=== PATIENT | female | born 1975 | race Caucasian/White ===

== ENCOUNTER 2017-01-24 17:49 | Emergency (ER) | payer BC, OTHER ==
[2017-01-24] MEDS ORDERED: Ondansetron 4 MG/2 ML SDV IVPUSH ONE (18:30)
[2017-01-24] MEDS ORDERED: Sodium Chloride 0.9% 1,000 ML IV SCH ×2 (18:30→20:15)
[2017-01-24] MEDS ORDERED: HYDROmorphone 0.5 MG/0.5 ML Syringe IVPUSH ONE (18:30)
--- NOTE | 2017-01-24 18:34 | EDM.PDOC ---
ED HPI GI/ABDOMINAL - General Chief Complaint: Abdominal Pain Stated Complaint: BLOCKAGE Time Seen by Provider: 01/24/17 18:32 Source: Reports: Patient, Family History Limitations: Reports: No limitations - History of Present Illness INITIAL COMMENTS - FREE TEXT/NARRATIVE: pt is feeling very distended She is having pain tht she is rating at a 8. She hs not vomited.After arrival pt was able to have a bm and she did pass gas/ Timing/Duration: Reports: Hour(s):, Other ( started at 3 pm) - Related Data Allergies/ADRs: Allergies Allergy/AdvReac Type Severity Reaction Status Date / Time doxycycline AdvReac Stomach Verified 01/24/17 18:09 Upset sumatriptan AdvReac Muscle Verified 01/24/17 18:09 Aches Home Meds: Home Meds Cholecalciferol (Vitamin D3) [Vitamin D3] 1,000 unit PO DAILY 12/17/13 [History] Cyanocobalamin (Vitamin B-12) [Vitamin B-12] 1,000 mcg PO DAILY 12/17/13 [ History] Cyclobenzaprine [Flexeril] 10 mg PO DAILY 12/17/13 [History] Multivitamin [Multi-Vitamin Daily] 1 each PO DAILY 12/17/13 [History] Ibuprofen [Motrin] 600 mg PO TID PRN 11/25/14 [History] diphenhydrAMINE HCl [Benadryl] 25 mg PO Q6H PRN 11/25/14 [History] Ferrous Sulfate 325 mg PO DAILY 03/01/16 [History] Vitamin B Complex [B Complex] 1 tab PO DAILY 03/01/16 [History] Liraglutide [Victoza] 0.6 units INJECT BEDTIME 01/24/17 [History] Past Medical History HEENT History: Reports: Allergic rhinitis, Impaired vision Gastrointestinal History: Reports: Bowel obstruction, Colon polyp Other Gastrointestinal History: revision of bariatris procedure [employer] History: Reports: Musculoskeletal History: Reports: Back pain, chronic, Fracture, Neck pain, chronic, Osteoarthritis Neurological History: Reports: Concussion, Head trauma, Migraines Endocrine/Metabolic History: Reports: Diabetes, type II Hematologic History: Reports: B12 deficiency - Past Surgical History GI Surgical History: Reports: Bariatric procedure, Cholecystectomy, Colonoscopy , EGD Female Surgical History: Reports: Breast reduction, section Social & Family History - Tobacco Use Smoking Status *Q: Never Smoker Second Hand Smoke Exposure: No - Caffeine Use Caffeine Use: Reports: Coffee, Soda, Tea - Alcohol Use Days Per Week of Alcohol Use: 0 - Recreational Drug Use Recreational Drug Use: No ED ROS GENERAL - Review of Systems Review Of Systems: See Below Constitutional: Reports: no symptoms HEENT: Reports: No symptoms Respiratory: Reports: No Symptoms Cardiovascular: Reports: No symptoms Endocrine: Reports: no symptoms GI/Abdominal: Reports: Abdominal pain, Other ( at three pm pt developed acute abdomanal pain and she had some distended bowel on xray. She was uncomfortable on arrival. ) : Reports: no symptoms Musculoskeletal: Reports: no symptoms Skin: Reports: no symptoms ED EXAM, GI/ABD - Physical Exam Exam: See Below Text/Narrative:: Pt arrived with acute pain in the upper abdoman. She felt distended. She had not vomoited Exam Limited By: No limitations General Appearance: alert, anxious, moderate distress Ears: normal TMs Nose: normal inspection Throat/Mouth: Normal inspection Head: atraumatic Neck: normal inspection Respiratory/Chest: no respiratory distress Cardiovascular: regular rate, rhythm GI/Abdominal: tenderness Rectal (Female) Exam: Deferred Back Exam: normal inspection Extremities: normal inspection Neurological: alert, oriented, normal cognition Course - Vital Signs Last Recorded V/S: Last Vital Signs Temp 35.8 C 01/24/17 20:01 Pulse 66 01/24/17 21:21 Resp 18 01/24/17 21:21 BP 115/69 01/24/17 21:21 Pulse Ox 97 01/24/17 21:21 - Orders/Labs/Meds Orders: Active Orders 24 hr Category Date Time Status Enema [RC] ASDIRECTED Care 01/24/17 20:24 Active Abdomen Pelvis w Cont [CT] Stat Exams 01/24/17 18:49 Taken Iopamidol [Isovue-300 (61%)] Med 01/24/17 19:15 Active 100 ml IV . DIRECTED Sodium Chloride 0.9% [Normal Saline] 1,000 ml Med 01/24/17 18:30 Active IV ASDIRECTED Sodium Chloride 0.9% [Normal Saline] 1,000 ml Med 01/24/17 20:15 Active IV ASDIRECTED Sodium Chloride 0.9% [Normal Saline] 80 ml Med 01/24/17 19:15 Active IV ASDIRECTED Sodium Chloride 0.9% [Saline Flush] Med 01/24/17 19:15 Active 10 ml FLUSH ASDIRECTED PRN Medication Orders Sodium Chloride (Normal Saline) 1,000 mls @ 999 mls/hr IV ASDIRECTED ZAIDA Last Admin: 01/24/17 18:50 Dose: 999 mls/hr Sodium Chloride (Normal Saline) 80 mls @ 3 mls/sec IV ASDIRECTED ZAIDA Last Admin: 01/24/17 19:19 Dose: 3 mls/sec Sodium Chloride (Normal Saline) 1,000 mls @ 500 mls/hr IV ASDIRECTED ZAIDA Last Admin: 01/24/17 20:16 Dose: 500 mls/hr Iopamidol (Isovue-300 (61%)) 100 ml IV . DIRECTED ZAIDA Last Admin: 01/24/17 19:19 Dose: 100 ml Sodium Chloride (Saline Flush) 10 ml FLUSH ASDIRECTED PRN PRN Reason: Keep Vein Open Last Admin: 01/24/17 19:19 Dose: 10 ml Labs: Laboratory Tests 01/24/17 01/24/17 01/24/17 Range/Units 18:35 18:35 18:35 WBC 8.0 (4.5-11.0) K/uL RBC 3.54 (3.30-5.50) M/uL Hgb 11.4 L D (12.0-15.0) g/dL Hct 35.3 L (36.0-48.0) % MCV 100 H (80-98) fL MCH 32 H (27-31) pg MCHC 32 (32-36) % Plt Count 297 (150-400) K/uL Neut % (Auto) 68 H (36-66) % Lymph % (Auto) 25 (24-44) % [place] % (Auto) 6 (2-6) % Eos % (Auto) 1 L (2-4) % Baso % (Auto) 0 (0-1) % Sodium 142 (140-148) mmol/L Potassium 4.1 (3.6-5.2) mmol/L Chloride 107 (100-108) mmol/L Carbon Dioxide 25 (21-32) mmol/L Anion Gap 9.7 (5.0-14.0) mmol/L BUN 13 (7-18) mg/dL Creatinine 0.6 (0.6-1.0) mg/dL Est Cr Clr Drug Dosing 116.68 mL/min Estimated GFR (MDRD) > 60 (>60) Glucose 106 (74-106) mg/dL Calcium 8.3 L (8.5-10.1) mg/dL Total Bilirubin 1.0 D (0.2-1.0) mg/dL AST 19 (15-37) U/L ALT 30 (12-78) U/L Alkaline Phosphatase 60 (46-116) U/L C-Reactive Protein 0.16 (0.0-0.3) mg/dL Total Protein 7.1 (6.4-8.2) g/dL Albumin 3.8 (3.4-5.0) g/dL Globulin 3.3 (2.3-3.5) g/dL Albumin/Globulin Ratio 1.2 (1.2-2.2) Urine Color Urine Appearance Urine pH (4.5-8.0) Ur Specific [place] (1.008-1.030) Urine Protein (NEGATIVE) mg/dL Urine Glucose (UA) (NEGATIVE) mg/dL Urine Ketones (NEGATIVE) mg/dL Urine Occult Blood (NEGATIVE) Urine Nitrite (NEGATIVE) Urine Bilirubin (NEGATIVE) Urine Urobilinogen (NORMAL) mg/dL Ur Leukocyte Esterase (NEGATIVE) Urine RBC (0-5) Urine WBC (0-5) Ur Epithelial Cells Amorphous Sediment Urine Bacteria Urine Mucus 01/24/17 Range/Units 18:53 WBC (4.5-11.0) K/uL RBC (3.30-5.50) M/uL Hgb (12.0-15.0) g/dL Hct (36.0-48.0) % MCV (80-98) fL MCH (27-31) pg MCHC (32-36) % Plt Count (150-400) K/uL Neut % (Auto) (36-66) % Lymph % (Auto) (24-44) % [place] % (Auto) (2-6) % Eos % (Auto) (2-4) % Baso % (Auto) (0-1) % Sodium (140-148) mmol/L Potassium (3.6-5.2) mmol/L Chloride (100-108) mmol/L Carbon Dioxide (21-32) mmol/L Anion Gap (5.0-14.0) mmol/L BUN (7-18) mg/dL Creatinine (0.6-1.0) mg/dL Est Cr Clr Drug Dosing mL/min Estimated GFR (MDRD) (>60) Glucose (74-106) mg/dL Calcium (8.5-10.1) mg/dL Total Bilirubin (0.2-1.0) mg/dL AST (15-37) U/L ALT (12-78) U/L Alkaline Phosphatase (46-116) U/L C-Reactive Protein (0.0-0.3) mg/dL Total Protein (6.4-8.2) g/dL Albumin (3.4-5.0) g/dL Globulin (2.3-3.5) g/dL Albumin/Globulin Ratio (1.2-2.2) Urine Color Yellow Urine Appearance Clear Urine pH 6.0 (4.5-8.0) Ur Specific [place] 1.015 (1.008-1.030) Urine Protein Negative (NEGATIVE) mg/dL Urine Glucose (UA) Normal (NEGATIVE) mg/dL Urine Ketones Negative (NEGATIVE) mg/dL Urine Occult Blood Negative (NEGATIVE) Urine Nitrite Negative (NEGATIVE) Urine Bilirubin Negative (NEGATIVE) Urine Urobilinogen Normal (NORMAL) mg/dL Ur Leukocyte Esterase Negative (NEGATIVE) Urine RBC 0-5 (0-5) Urine WBC 0-5 (0-5) Ur Epithelial Cells Moderate Amorphous Sediment Rare Urine Bacteria Few Urine Mucus Rare Meds: Medications Generic Name Dose Route Start Last Admin Trade Name Freq PRN Reason Stop Dose Admin Sodium Chloride 1,000 mls @ 999 mls/hr 01/24/17 18:30 01/24/17 18:50 Normal Saline IV 999 mls/hr ASDIRECTED ZAIDA Administration Sodium Chloride 80 mls @ 3 mls/sec 01/24/17 19:15 01/24/17 19:19 Normal Saline IV 3 mls/sec ASDIRECTED ZAIDA Administration Sodium Chloride 1,000 mls @ 500 mls/hr 01/24/17 20:15 01/24/17 20:16 Normal Saline IV 500 mls/hr ASDIRECTED ZAIDA Administration Iopamidol 100 ml 01/24/17 19:15 01/24/17 19:19 Isovue-300 (61%) IV 100 ml . DIRECTED ZAIDA Administration Sodium Chloride 10 ml 01/24/17 19:15 01/24/17 19:19 Saline Flush FLUSH 10 ml ASDIRECTED PRN Administration Keep Vein Open Discontinued Medications Generic Name Dose Route Start Last Admin Trade Name Oj PRN Reason Stop Dose Admin Hydromorphone HCl 0.5 mg 01/24/17 18:30 01/24/17 18:51 Dilaudid IVPUSH 01/24/17 18:31 0.5 mg ONETIME ONE Administration Ondansetron HCl 4 mg 01/24/17 18:30 01/24/17 18:50 Zofran IVPUSH 01/24/17 18:31 4 mg ONETIME ONE Administration - Re-Assessments/Exams Free Text/Narrative Re-Assessment/Exam: 01/24/17 22:07 pt had a cat scan of the abdoman which showed a distended sig moid colon and alot of stool below it. There was no sign of obstruction. She did have 2 stool since arival and passed alot of gas and she is feeling better. She was given a soap suds enemea with good results and she is not having any pressure or pain. 01/24/17 22:08 Departure - Departure Time of Disposition: 22:09 Disposition: Home, Self-Care 01 Condition: fair Clinical Impression: Constipation, Gastric bypass status for obesity Forms: ED Department Discharge Care Plan Goals: keep stools regular, push fluids. See Lauryn or Dr Easley if further pain. Call back if this becomes acute. - My Orders Last 24 Hours: My Active Orders 01/24/17 18:30 Sodium Chloride 0.9% [Normal Saline] 1,000 ml IV ASDIRECTED 01/24/17 18:49 Abdomen Pelvis w Cont [CT] Stat 01/24/17 19:15 Iopamidol [Isovue-300 (61%)] 100 ml IV . DIRECTED Sodium Chloride 0.9% [Normal Saline] 80 ml IV ASDIRECTED Sodium Chloride 0.9% [Saline Flush] 10 ml FLUSH ASDIRECTED PRN 01/24/17 20:15 Sodium Chloride 0.9% [Normal Saline] 1,000 ml IV ASDIRECTED 01/24/17 20:24 Enema [RC] ASDIRECTED - Assessment/Plan Last 24 Hours: My Active Orders 01/24/17 18:30 Sodium Chloride 0.9% [Normal Saline] 1,000 ml IV ASDIRECTED 01/24/17 18:49 Abdomen Pelvis w Cont [CT] Stat 01/24/17 19:15 Iopamidol [Isovue-300 (61%)] 100 ml IV . DIRECTED Sodium Chloride 0.9% [Normal Saline] 80 ml IV ASDIRECTED Sodium Chloride 0.9% [Saline Flush] 10 ml FLUSH ASDIRECTED PRN 01/24/17 20:15 Sodium Chloride 0.9% [Normal Saline] 1,000 ml IV ASDIRECTED 01/24/17 20:24 Enema [RC] ASDIRECTED
[2017-01-24] MEDS ORDERED: Iopamidol 612 MG/ML 100 ML Bottle IV SCH (19:15)
[2017-01-24] MEDS ORDERED: Sodium Chloride 0.9% 80 ML IV SCH (19:15)
[2017-01-24] MEDS ORDERED: Sodium Chloride 0.9% 10 ML Syringe FLUSH PRN (19:15)
[2017-01-24 21:21] VITALS: BP 115/69
== END 2017-01-24 22:40 | disposition home or self-care (01) ==
LOC: JP.ED 17:49
DX: K59.00 Constipation, unspecified (principal); E11.9 Type 2 diabetes mellitus without complications; Z90.49 Acquired absence of other specified parts of digestive tract; Z98.84 Bariatric surgery status; Z98.890 Other specified postprocedural states; Z79.899 Other long term (current) drug therapy
CPT/HCPCS: 36415; 74177; 80053; 81001; 85025; 86140; 96361; 96374; 96375; 99284; J1170; J2405; J7030; J7040; J7050; Q9967

== ENCOUNTER 2018-11-19 05:27 | Inpatient (IN) | payer BC ==
[2018-11-19] MEDS ORDERED: Celecoxib 200 MG Cap PO ONE (05:30)
[2018-11-19] MEDS ORDERED: Acetaminophen 500 MG Tab PO ONE (05:30)
[2018-11-19] MEDS ORDERED: Dextrose 5%-Lactated Ringers 1,000 ML IV SCH (06:00)
[2018-11-19] MEDS ORDERED: Meropenem 500 MG SDV ONE (06:39)
[2018-11-19] MEDS ORDERED: fentaNYL 250 MCG/5 ML SDV ONE ×2 (07:09→07:46)
[2018-11-19] MEDS ORDERED: Rocuronium 50 MG/5 ML Vial ONE (07:10)
[2018-11-19] MEDS ORDERED: Propofol 200 MG/20 ML SDV ONE (07:10)
[2018-11-19] MEDS ORDERED: Succinylcholine 200 MG/10 ML MDV ONE (07:10)
[2018-11-19] MEDS ORDERED: Dexamethasone 4 MG/ML SDV ONE (07:10)
[2018-11-19] MEDS ORDERED: Ondansetron 4 MG/2 ML SDV ONE (07:10)
[2018-11-19] MEDS ORDERED: Glycopyrrolate 0.2 MG/ML 5 ML MDV ONE (07:10)
[2018-11-19] MEDS ORDERED: Neostigmine Methylsulfate 1 MG/ML 5 ML Syringe ONE (07:10)
[2018-11-19] MEDS ORDERED: Ketamine 500 MG/5 ML MDV IV SCH (07:30)
[2018-11-19] MEDS ORDERED: Ketamine 50 MG in Sodium Chloride 0.9% 49.5 ML IV SCH (07:30)
[2018-11-19] MEDS ORDERED: cefOXitin 2 GM in Sodium Chloride 0.9% 50 ML IV ONE (07:30)
[2018-11-19] MEDS ORDERED: Ropivacaine 34 ML, Dexamethasone 8 MG, EPINEPHrine 0.4 MG, Sodium Chloride 0.9% 43.6 ML NERVRT SCH ×4 (07:30)
[2018-11-19] MEDS ORDERED: Morphine PF 150 MG/30 ML PCA Syringe IV PRN (07:36)
[2018-11-19] MEDS ORDERED: Naloxone 0.4 MG/ML SDV IV PRN (07:39)
[2018-11-19] MEDS ORDERED: Bupivacaine 0.5%/EPINEPHrine 1:200,000 50 ML MDV ONE (07:53)
[2018-11-19] MEDS ORDERED: Metoclopramide 10 MG/2 ML SDV IVPUSH PRN (11:17)
[2018-11-19] MEDS ORDERED: hydrOXYzine HCl 100 MG/2 ML SDV IM PRN (11:17)
[2018-11-19] MEDS ORDERED: diphenhydrAMINE 50 MG/ML SDV IVPUSH PRN (11:17)
[2018-11-19] MEDS ORDERED: Ondansetron 4 MG/2 ML SDV IVPUSH PRN (11:17)
[2018-11-19] MEDS ORDERED: Labetalol 20 MG/4 ML Syringe IVPUSH PRN (11:17)
[2018-11-19] MEDS: diphenhydrAMINE 25 MG Cap PO PRN (11:58)
[2018-11-19] MEDS: Scopolamine 1.5 MG Transdermal Patch TOP SCH ×2 (12:38→14:31)
[2018-11-19] MEDS: cefOXitin 2 GM in Sodium Chloride 0.9% 50 ML IV SCH ×2 (14:19→19:31)
[2018-11-19] MEDS: Acetaminophen Soln 650 MG/20.3 ML UD Cup PO SCH ×2 (14:26→19:33)
[2018-11-19] MEDS: Pantoprazole 40 MG Vial IVPUSH SCH (14:26)
[2018-11-19] MEDS: MVI, Adult with Vitamin K 10 ML, Thiamine 100 MG, Chromium/Copper/Mang/Selen/Zn 1 ML in... IV SCH ×4 (16:01)
[2018-11-19] MEDS: Heparin Sodium 5,000 Units/ML Vial SUBCUT SCH (17:30)
[2018-11-19] MEDS: Dextrose 5%-Lactated Ringers 1,000 ML IV SCH (23:32)
[2018-11-20] MEDS: Acetaminophen Soln 650 MG/20.3 ML UD Cup PO SCH ×2 (02:07→07:56)
[2018-11-20] MEDS: diphenhydrAMINE 25 MG Cap PO PRN ×2 (02:07→08:39)
[2018-11-20] MEDS ORDERED: Iohexol 647 MG/ML 50 ML SDV PO ONE (03:53)
--- NOTE | 2018-11-20 04:58 | CRLCR ---
INDICATION: Status post release of volvulus TECHNIQUE: Abdominal radiograph 3 views. Oral contrast was administered with no radiologist in attendance. COMPARISON: None FINDINGS: Bowel: Oral contrast opacifies mildly dilated loop of small bowel in the left flank. Mild gaseous distention of the splenic flexure and a moderate to large amount of stool is seen in the descending colon. Soft tissue: A small amount of pneumoperitoneum present. No suspicious calcifications noted. Midline skin nataliia are present in the lower abdomen and pelvis. Surgical clips are noted in the right upper quadrant from prior cholecystectomy. Bone: Unremarkable for age. IMPRESSION: 1. Oral contrast opacifies mildly dilated loop of small bowel in the left flank. Findings are nonspecific and can be due to ileus or small-bowel obstruction. Fluoroscopic evaluation is more sensitive in evaluating the contrast column. 2. A small amount of pneumoperitoneum present. This may be related to recent surgery. Dictated by John Gutierrez MD @ 11/20/2018 4:56:59 AM Dictated by: John Gutierrez MD @ 11/20/2018 04:57:05 (Electronically Signed)
[2018-11-20] MEDS: Dextrose 5%-Lactated Ringers 1,000 ML IV SCH (06:13)
[2018-11-20] MEDS: Heparin Sodium 5,000 Units/ML Vial SUBCUT SCH ×2 (06:14→18:21)
[2018-11-20] MEDS ORDERED: Celecoxib 200 MG Cap PO SCH (08:00)
[2018-11-20] MEDS ORDERED: Dextrose 5%-Lactated Ringers 1,000 ML IV SCH (08:15)
--- NOTE | 2018-11-20 08:36 | PCM.SURGPN ---
- General Info Date of Service: 11/20/18 Date of Surgery/Procedure: 11/19/18 POD#: 1 Post-Op Diagnosis: Small bowel obstruction Functional Status: Reports: Pain Controlled (on Scopolamine patch and Morphine CLOTH PIECER), Tolerating Diet (Step III), Ambulating, Urinating (2700 mL) - Review of Systems Systems Review Comment:: Mary Beth Castellanos is a 43-year-old female who is post op day 1 from an exploratory laparotomy with repair of small bowel volvulus and Interceed mesh placement. Patient remains afebrile with stable vital signs. Patient is tolerating a Step III diet with good urine output, but is not passing gas yet. The patient's pain is controlled on a Scopolamine patch and Morphine CLOTH PIECER. However, the patient is itching but Benadryl is helping. If she is able, DC the morphine CLOTH PIECER to stop itching and transition to oral pain medication. The patient expresses she would like to shower and this can be done today. She also mentioned she is having abdominal spasms. - Patient Data Vitals - Most Recent: Last Vital Signs Temp 37.0 C 11/20/18 07:49 Pulse 62 11/20/18 07:49 Resp 14 11/20/18 07:49 BP 115/66 11/20/18 07:49 Pulse Ox 98 11/20/18 07:49 Weight - Most Recent: 68.629 kg I&O - Last 24 Hours: Intake & Output 11/19/18 11/20/18 11/20/18 22:59 06:59 14:59 Intake Total 1830 1773 Balance 1830 1773 Med Orders - Current: Current Medications Celecoxib (Celebrex) 200 mg PO DAILY@0800 [facility] Last Admin: 11/20/18 07:56 Dose: 200 mg Cyanocobalamin (Vitamin B12) 1,000 mcg IM ONETIME ONE Stop: 11/21/18 09:01 Cyclobenzaprine HCl (Flexeril) 10 mg PO Q6H PRN PRN Reason: muscle spasms Diphenhydramine HCl (Benadryl) 50 mg IVPUSH Q4H PRN PRN Reason: ITCHING Diphenhydramine HCl (Benadryl) 50 mg PO Q4H PRN PRN Reason: Itching Last Admin: 11/20/18 02:07 Dose: 50 mg Heparin Sodium (Porcine) (Heparin Sodium) 5,000 units SUBCUT Q12H [facility] Last Admin: 11/20/18 06:14 Dose: 5,000 units Hydroxyzine HCl (Vistaril) 100 mg IM Q4H PRN PRN Reason: pain Multivitamins/Minerals 10 ml/Thiamine HCl 100 mg/ Chromium/Copper/Manganese/ Seleni/Zn 1 ml/ Dextrose/Lactated Ringer's 1,012 mls @ 149.852 mls/hr IV DAILY@ 1600 [facility] Last Admin: 11/19/18 16:01 Dose: 149.852 mls/hr Dextrose/Lactated Ringer's (Dextrose 5%-Lactated Ringers) 1,000 mls @ 80 mls/ hr IV ASDIRECTED [facility] Labetalol HCl (Normodyne) 5 mg IVPUSH Q5M PRN PRN Reason: SBP over 160 OR DBP over 95 Metoclopramide HCl (Reglan) 10 mg IVPUSH Q6H PRN PRN Reason: NAUSEA NOT CONTROL BY ZOFRAN Miscellaneous Information (Remove Patch) 1 ea TRDERM ONETIME ONE Stop: 11/21/18 10:01 Scopolamine Patch (Check) 1 each TOP DAILY [facility] Stop: 11/21/18 11:18 Desogestrel-Ethinyl Estradiol (Emoquette 28 Day)Pom 0 each PO DAILY [facility] Ondansetron HCl (Zofran) 4 mg IVPUSH Q4H PRN PRN Reason: Nausea/Vomiting Last Admin: 11/19/18 19:19 Dose: 4 mg Ondansetron HCl (Zofran Odt) 4 mg PO Q4H PRN PRN Reason: Nausea/Vomiting Oxycodone/Acetaminophen (Percocet 325-5 Mg) 1 - 2 tab PO Q4H PRN PRN Reason: paiin Pantoprazole Sodium (Protonix Iv) 40 mg IVPUSH Q24H [facility] Last Admin: 11/19/18 14:26 Dose: 40 mg Scopolamine (Transderm-Scop) 1.5 mg TOP Q72H [facility] Stop: 11/21/18 10:00 Last Admin: 11/19/18 14:31 Dose: 1.5 mg Discontinued Medications Acetaminophen (Tylenol Extra Strength) 1,000 mg PO ONETIME ONE Stop: 11/19/18 05:31 Last Admin: 11/19/18 05:55 Dose: 1,000 mg Acetaminophen (Tylenol) 650 mg PO Q6H [facility] Last Admin: 11/20/18 07:56 Dose: 650 mg Bupivacaine HCl/Epinephrine Bitart (Marcaine 0.5%/Epinephrine 1:200,000) Confirm Administered Dose 50 ml .ROUTE .STK-MED ONE Stop: 11/19/18 07:54 Last Admin: 11/19/18 08:03 Dose: 40 ml Celecoxib (Celebrex) 200 mg PO ONETIME ONE Stop: 11/19/18 05:31 Last Admin: 11/19/18 05:54 Dose: 200 mg Ropivacaine 34 ml/Dexamethasone 8 mg/Epinephrine HCl 0.4 mg/ Sodium Chloride 43.6 ml 0 ml NERVRT ASDIRECTED [facility] Last Admin: 11/19/18 07:56 Dose: 80 syringe Dexamethasone (Dexamethasone) Confirm Administered Dose 4 mg .ROUTE .STK-MED ONE Stop: 11/19/18 07:11 Fentanyl (Sublimaze) Confirm Administered Dose 250 mcg .ROUTE .STK-MED ONE Stop: 11/19/18 07:10 Fentanyl (Sublimaze) Confirm Administered Dose 250 mcg .ROUTE .STK-MED ONE Stop: 11/19/18 07:47 Glycopyrrolate (Robinul) Confirm Administered Dose 1 mg .ROUTE .STK-MED ONE Stop: 11/19/18 07:11 Cefoxitin Sodium 2 gm/ Sodium (Chloride) 50 mls @ 100 mls/hr IV ONETIME ONE Stop: 11/19/18 07:59 Last Admin: 11/19/18 07:11 Dose: 100 mls/hr Dextrose/Lactated Ringer's (Dextrose 5%-Lactated Ringers) 1,000 mls @ 100 mls/ hr IV ASDIRECTED [facility] Last Admin: 11/19/18 05:54 Dose: 100 mls/hr Ketamine HCl 50 mg/ Sodium (Chloride) 50 mls @ 17.1 mls/hr IV ASDIRECTED [facility] Dextrose/Lactated Ringer's (Dextrose 5%-Lactated Ringers) 1,000 mls @ 150 [facility]ls[facility] Last Admin: 11/20/18 06:13 Dose: 150 mls/hr Cefoxitin Sodium 2 gm/ Sodium (Chloride) 50 mls @ 100 mls/hr IV Q6H [facility] Stop: 11/19/18 20:29 Last Admin: 11/19/18 19:31 Dose: 100 mls/hr Iohexol (Omnipaque-300) 50 ml PO ONETIME ONE Stop: 11/20/18 03:54 Last Admin: 11/20/18 04:02 Dose: 50 ml Ketamine HCl (Ketalar) 28 mg IV ASDIRECTED [facility] Meropenem (Merrem) Confirm Administered Dose 500 mg .ROUTE .STK-MED ONE Stop: 11/19/18 06:40 Morphine Sulfate (Morphine [employer] 150 Mg In 30 Ml) 0 mg IV ASDIRECTED PRN; Protocol PRN Reason: Pain Last Admin: 11/19/18 07:41 Dose: 1 mg Naloxone HCl (Narcan) 0.1 mg IV ASDIRECTED PRN PRN Reason: decreased respiratory rate Neostigmine Methylsulfate (Neostigmine) Confirm Administered Dose 5 mg .ROUTE .STK-MED ONE Stop: 11/19/18 07:11 Ondansetron HCl (Zofran) Confirm Administered Dose 4 mg .ROUTE .STK-MED ONE Stop: 11/19/18 07:11 Propofol (Diprivan 20 Ml) Confirm Administered Dose 200 mg .ROUTE .STK-MED ONE Stop: 11/19/18 07:11 Rocuronium [place] (Zemuron) Confirm Administered Dose 50 mg .ROUTE .STK-MED ONE Stop: 11/19/18 07:11 Succinylcholine Chloride (Quelicin) Confirm Administered Dose 200 mg .ROUTE .STK -MED ONE Stop: 11/19/18 07:11 - Exam General: Alert, Oriented Neck: Supple Lungs: Clear to Auscultation, Normal Respiratory Effort Cardiovascular: Regular Rate, Regular Rhythm Extremities: No Pedal Edema Neurological: No New Focal Deficit Psy/Mental Status: Normal Affect, Normal Mood - Problem List Review Problem List Initiated/Reviewed/Updated: Yes - My Orders Last 24 Hours: Active Orders 24 hr Category Date Time Status Patient Status [ADT] Routine ADT 11/19/18 08:30 Active Ambulate [RC] ASDIRECTED Care 11/19/18 09:59 Active Cardiac Monitoring Discontinue [RC] Click to Edit Care 11/20/18 08:13 Active Communication Order [RC] ASDIRECTED Care 11/21/18 04:00 Active Communication Order [RC] ROUTINE Care 11/19/18 09:59 Active Communication Order [RC] ROUTINE Care 11/19/18 10:17 Active Dorsiflex/Plantar flex x 10 [RC] QSHIFT Care 11/19/18 09:59 Active Head of Bed Elevation [RC] CONTINUOUS Care 11/19/18 09:59 Active Intake and Output [RC] ASDIRECTED Care 11/19/18 09:59 Active May Shower [RC] ASDIRECTED Care 11/20/18 08:13 Active Notify Provider Intake and Out [RC] ASDIRECTED Care 11/19/18 09:59 Active Notify Provider [RC] PRN Care 11/19/18 09:59 Active Oxygen Therapy [RC] ASDIRECTED Care 11/19/18 09:59 Active Pneumonia Education [RC] UPON Care 11/19/18 09:59 Active RT BiPAP/CPAP [RC] ASDIRECTED Care 11/19/18 09:59 Active RT Incentive Spirometry [RC] Q1HWA Care 11/19/18 09:59 Active Turn, Cough, Deep Breathe [RC] Q1HWA Care 11/19/18 09:59 Active Up to Chair [RC] TIDMEALS Care 11/19/18 09:59 Active Consult to Bariatric Services [CONS] Routine Cons 11/19/18 09:59 Active Consult to Communications Supervisor [CONS] Routine Cons 11/19/18 09:59 Active Respiratory Care Assess and Treatment [CONS] Routine Cons 11/19/18 09:59 Active Respiratory Care Assess and Treatment [CONS] Routine Cons 11/19/18 09:59 Active Bariatric Diet [DIET] Diet 11/19/18 Lunch Active Post Gastric Surgery [Bariatric Diet] [DIET] Diet 11/19/18 Dinner Active Acetaminophen/oxyCODONE [Percocet 325-5 MG] Med 11/20/18 08:14 Active 1 - 2 tab PO Q4H PRN Celecoxib [CeleBREX] Med 11/20/18 08:00 Active 200 mg PO DAILY@0800 Cyanocobalamin (Vitamin B12) [Vitamin B12] Med 11/21/18 09:00 Once 1,000 mcg IM ONETIME ONE Cyclobenzaprine [Flexeril] Med 11/20/18 08:14 Active 10 mg PO Q6H PRN Desogestrel-Ethinyl Estradiol [Emoquette 28 Day Tablet] Med 11/20/18 09:00 Active 0 each PO DAILY Dextrose 5%-Lactated Ringers 1,000 ml Med 11/20/18 08:15 Active IV ASDIRECTED Heparin Sodium Med 11/19/18 18:00 Active 5,000 units SUBCUT Q12H Labetalol [Normodyne] Med 11/19/18 11:17 Active 5 mg IVPUSH Q5M PRN MVI, Adult with Vitamin K [Infuvite Adult] 10 ml Med 11/19/18 16:00 Active Thiamine [Vitamin B-1] 100 mg Chromium/Copper/Janes/Selen/Zn [Multitrace-5 Concentrate ] 1 ml Dextrose 5%-Lactated Ringers 1,000 ml IV DAILY@1600 Metoclopramide [Reglan] Med 11/19/18 11:17 Active 10 mg IVPUSH Q6H PRN Non-Formulary Medication [NF Drug] Med 11/19/18 11:17 Active 1 each TOP DAILY Ondansetron [Zofran ODT] Med 11/20/18 08:13 Active 4 mg PO Q4H PRN Ondansetron [Zofran] Med 11/19/18 11:17 Active 4 mg IVPUSH Q4H PRN Pantoprazole [ProTONIX IV] Med 11/19/18 14:00 Active 40 mg IVPUSH Q24H Remove Patch Med 11/21/18 10:00 Once 1 ea TRDERM ONETIME ONE Scopolamine [Transderm-Scop] Med 11/19/18 11:30 Active 1.5 mg TOP Q72H diphenhydrAMINE [Benadryl] Med 11/19/18 11:17 Active 50 mg IVPUSH Q4H PRN diphenhydrAMINE [Benadryl] Med 11/19/18 11:20 Active 50 mg PO Q4H PRN hydrOXYzine HCl [Vistaril] Med 11/19/18 11:17 Active 100 mg IM Q4H PRN Abdominal Binder [OM.PC] Routine Oth 11/19/18 09:59 Ordered Convert IV to Saline Lock [OM.PC] Routine Oth 11/20/18 08:13 Ordered Oral Care [OM.PC] BID Oth 11/19/18 10:00 Ordered Oral Care [OM.PC] BID Oth 11/19/18 10:00 Ordered Oral Care [OM.PC] BID Oth 11/20/18 10:00 Ordered Oral Care [OM.PC] BID Oth 11/20/18 10:00 Ordered PT Screening [OM.PC] Routine Oth 11/19/18 09:59 Active Sequential Compression Device [OM.PC] Routine Oth 11/19/18 09:59 Ordered Specialty Bed [OM.PC] Routine Oth 11/19/18 09:59 Ordered Resuscitation Status Routine Resus Stat 11/19/18 09:57 Ordered Medication Orders Celecoxib (Celebrex) 200 mg PO DAILY@0800 [facility] Last Admin: 11/20/18 07:56 Dose: 200 mg Cyanocobalamin (Vitamin B12) 1,000 mcg IM ONETIME ONE Stop: 11/21/18 09:01 Cyclobenzaprine HCl (Flexeril) 10 mg PO Q6H PRN PRN Reason: muscle spasms Diphenhydramine HCl (Benadryl) 50 mg IVPUSH Q4H PRN PRN Reason: ITCHING Diphenhydramine HCl (Benadryl) 50 mg PO Q4H PRN PRN Reason: Itching Last Admin: 11/20/18 02:07 Dose: 50 mg Admin: 11/19/18 11:58 Dose: 50 mg Heparin Sodium (Porcine) (Heparin Sodium) 5,000 units SUBCUT Q12H [facility] Last Admin: 11/20/18 06:14 Dose: 5,000 units Admin: 11/19/18 17:30 Dose: 5,000 units Hydroxyzine HCl (Vistaril) 100 mg IM Q4H PRN PRN Reason: pain Multivitamins/Minerals 10 ml/Thiamine HCl 100 mg/ Chromium/Copper/Manganese/ Seleni/Zn 1 ml/ Dextrose/Lactated Ringer's 1,012 mls @ 149.852 mls/hr IV DAILY@ 1600 [facility] Last Admin: 11/19/18 16:01 Dose: 149.852 mls/hr Dextrose/Lactated Ringer's (Dextrose 5%-Lactated Ringers) 1,000 mls @ 80 mls/ hr IV ASDIRECTED [facility] Labetalol HCl (Normodyne) 5 mg IVPUSH Q5M PRN PRN Reason: SBP over 160 OR DBP over 95 Metoclopramide HCl (Reglan) 10 mg IVPUSH Q6H PRN PRN Reason: NAUSEA NOT CONTROL BY ZOFRAN Miscellaneous Information (Remove Patch) 1 ea TRDERM ONETIME ONE Stop: 11/21/18 10:01 Scopolamine Patch (Check) 1 each TOP DAILY [facility] Stop: 11/21/18 11:18 Desogestrel-Ethinyl Estradiol (Emoquette 28 Day)Pom 0 each PO DAILY [facility] Ondansetron HCl (Zofran) 4 mg IVPUSH Q4H PRN PRN Reason: Nausea/Vomiting Last Admin: 11/19/18 19:19 Dose: 4 mg Ondansetron HCl (Zofran Odt) 4 mg PO Q4H PRN PRN Reason: Nausea/Vomiting Oxycodone/Acetaminophen (Percocet 325-5 Mg) 1 - 2 tab PO Q4H PRN PRN Reason: paiin Pantoprazole Sodium (Protonix Iv) 40 mg IVPUSH Q24H [facility] Last Admin: 11/19/18 14:26 Dose: 40 mg Scopolamine (Transderm-Scop) 1.5 mg TOP Q72H [facility] Stop: 11/21/18 10:00 Last Admin: 11/19/18 14:31 Dose: 1.5 mg - Assessment Assessment (Free Text/Narrative):: Operation: Exploratory laparotomy with repair of small bowel volvulus and Interceed mesh placement. Pre-Op Diagnosis: Small bowel obstruction Post-Op Diagnosis: Small bowel obstruction Surgeon: Chester Easley MD Date of Surgery: 11/20/18 Assistants: Lauryn Cueto PA-C and GUDELIA GarciaS - Plan Plan (Free Text/Narrative):: 1. Discontinue Morphine CLOTH PIECER. 2. Discontinue Tylenol. 3. Start Percocet 325-5 mg 1-2 tabs PO every 4 hours PRN for pain. 4. Start Celebrex 200 mg PO daily at 0800 scheduled for pain. 5. Continue Scopolamine patch. 6. Benadryl 50 mg IV push every 4 hours PRN for itching. 7. Benadryl 50 mg PO every 4 hours PRN for itching. 8. Flexeril 10 mg PO every 6 hours PRN for muscle spasms. 9. Start Protonix 40 mg IV push every 24 hours for bowel stimulation. 10. Continue Zofran 4 mg PO every 4 hours PRN for nausea and vomiting. 11. Decrease IV rate to 80/hour.
[2018-11-20] MEDS: Cyclobenzaprine 10 MG Tab PO PRN ×2 (08:40→15:55)
[2018-11-20] MEDS: SCOPOLAMINE PATCH CHECK TOP SCH (09:50)
[2018-11-20] MEDS: DESOGESTREL ETHINYL ESTRADIOL PO SCH (09:50)
[2018-11-20] MEDS: MVI, Adult with Vitamin K 10 ML, Thiamine 100 MG, Chromium/Copper/Mang/Selen/Zn 1 ML in... IV SCH ×4 (15:50)
[2018-11-20] MEDS: Pantoprazole 40 MG Vial IVPUSH SCH (15:50)
[2018-11-20] MEDS: Ondansetron 4 MG Tab.DIS PO PRN (18:20)
[2018-11-21] MEDS ORDERED: Calcium Carbonate 500 MG Tab.Chew PO PRN (01:05)
[2018-11-21] MEDS: Ondansetron 4 MG Tab.DIS PO PRN (02:39)
[2018-11-21] MEDS: Heparin Sodium 5,000 Units/ML Vial SUBCUT SCH ×2 (06:18→18:32)
[2018-11-21] MEDS: Acetaminophen/oxyCODONE 325-5 MG Tab PO PRN ×6 (06:26→22:09)
[2018-11-21] MEDS ORDERED: Dextrose 5%-Lactated Ringers 1,000 ML IV SCH (07:30)
--- NOTE | 2018-11-21 07:54 | CRLCR ---
INDICATION: Postoperative bloating. TECHNIQUE: Four views of the abdomen and pelvis. COMPARISON: 11/20/2018. IMPRESSION: On the AP view, there is a small amount of free intraperitoneal air, likely related to the recent surgery. There are a few mildly dilated small bowel loops seen in the left-side of the abdomen which contain air-fluid levels on the upright views. These appear stable in caliber compared to yesterday`s exam. The oral contrast noted in the small bowel on yesterday`s exam is now predominantly in the right side of the colon. There is a moderate of stool in the colon, within mild to moderately dilated colon seen throughout the abdomen and pelvis. The above findings are most suggestive of an ileus. Dictated by Stew Chin MD @ 11/21/2018 7:52:23 AM Dictated by: Stew Chin MD @ 11/21/2018 07:52:33 (Electronically Signed)
[2018-11-21] MEDS ORDERED: Cyanocobalamin (Vitamin B12) 1,000 MCG/ML SDV IM ONE (09:00)
[2018-11-21] MEDS: Pantoprazole 40 MG Tab.CR PO SCH ×2 (09:44→16:31)
[2018-11-21] MEDS: Bisacodyl 10 MG Supp RECTAL SCH ×2 (09:45→20:53)
[2018-11-21] MEDS: DESOGESTREL ETHINYL ESTRADIOL PO SCH (09:45)
[2018-11-21] MEDS: SCOPOLAMINE PATCH CHECK TOP SCH (09:46)
--- NOTE | 2018-11-21 09:52 | PN ---
DATE OF SERVICE: 11/21/2018 SUBJECTIVE: Mary Beth was doing well until the middle of the night. She did have an emesis of 150 mL. She told nursing staff she thought it was more heartburn than anything. She states that she had been taking Tums out of her purse. Tums were ordered and she has been taking them every 2 hours. She is not passing flatus, feels a little bit distended. The pain is controlled. OBJECTIVE: GENERAL: Mary Beth Castellanos is a 43-year-old female. VITAL SIGNS: TPR is 97.6, 92, 15, blood pressure 118/80. HEENT: Negative. NECK: Supple. HEART: Regular rate and rhythm. LUNGS: Clear. ABDOMEN: Really no distention is noted. It is soft, very minimally tender. Abdominal binder has been on. EXTREMITIES: Without peripheral edema. ASSESSMENT: Exploratory laparotomy, reduction of small bowel volvulus, and closure of internal hernia, placement of Interceed mesh for small bowel volvulus involving the jejunojejunostomy. Date of surgery, 11/19/2018. Surgeon, Chester Easley MD. PLAN: 1. N.p.o. May have ice chips. 2. Restart IV at D5 LR at 100 mL per hour. 3. Abdominal flat and upright film daily. 4. Dulcolax suppository b.i.d. until BM. 5. Protonix 40 mg p.o. b.i.d. 6. Encouraged ambulation to walk at least 6 times a day. 7. Discontinue all straws. 8. We will evaluate p.r.n. or in a.m. Lauryn Cueto PA-C /[id number]
[2018-11-21] MEDS ORDERED: MVI, Adult with Vitamin K 10 ML, Thiamine 100 MG, Chromium/Copper/Mang/Selen/Zn 1 ML in... IV SCH ×4 (16:00)
[2018-11-21] MEDS: Cyclobenzaprine 10 MG Tab PO PRN ×2 (19:43)
[2018-11-22] MEDS: Acetaminophen/oxyCODONE 325-5 MG Tab PO PRN ×5 (02:36→21:56)
--- NOTE | 2018-11-22 04:54 | CRLCR ---
INDICATION: Post operative ileus TECHNIQUE: Abdominal radiograph 4 views COMPARISON: 11/21/2018 FINDINGS: Moderate degradation of image quality noted due to body habitus. Bowel: And large amount stool seen throughout the colon with moderate gaseous distention noted. Mildly dilated small bowel loops are present in the left lower quadrant. Midline abdominal skin nataliia are noted. Soft tissue: Small amount of pneumoperitoneum is seen below the right hemidiaphragm, likely related to recent surgery. No suspicious calcifications noted. Bone: Unremarkable for age. IMPRESSIONS: 1. Small amount of pneumoperitoneum is seen below the right hemidiaphragm, likely related to recent surgery. 2. And large amount stool seen throughout the colon with moderate gaseous distention noted. Mildly dilated small bowel loops are present in the left lower quadrant. Findings are likely due to adynamic ileus. The amount of stool and gas is distention has slightly increased. Distal colonic obstruction is considered less likely and can`t be excluded by barium enema if clinically indicated. Dictated by John Gutierrez MD @ 11/22/2018 4:52:31 AM Dictated by: John Gutierrez MD @ 11/22/2018 04:52:34 (Electronically Signed)
[2018-11-22] MEDS: Cyclobenzaprine 10 MG Tab PO PRN ×3 (06:34→21:03)
[2018-11-22] MEDS: Heparin Sodium 5,000 Units/ML Vial SUBCUT SCH ×2 (06:56→17:22)
[2018-11-22] MEDS: Pantoprazole 40 MG Tab.CR PO SCH ×2 (07:23→15:54)
[2018-11-22] MEDS ORDERED: Bisacodyl 10 MG Supp RECTAL PRN (07:57)
[2018-11-22] MEDS ORDERED: Metoclopramide 10 MG/2 ML SDV IVPUSH SCH (08:30)
[2018-11-22] MEDS ORDERED: Magnesium Hydroxide 400 MG/5 ML Susp 30 ML Cup PO ONE (08:30)
[2018-11-22] MEDS: DESOGESTREL ETHINYL ESTRADIOL PO SCH (09:06)
[2018-11-22] MEDS ORDERED: Bisacodyl 5 MG Tab PO ONE (09:30)
--- NOTE | 2018-11-22 10:28 | PN ---
DATE OF SERVICE: 11/22/2018 SUBJECTIVE: Mary Beth Castellanos has been on sips of clear liquids for postop ileus. Her flat and upright today showed increased amount of stool. She has been getting Dulcolax suppository, had 2 small BMs with third one being a large BM. She has noticed yesterday while walking a bulging above her incision. Staff put on a Kerlix with her abdominal binder. She feels better and it is not as big today as it was yesterday. Oral intake 240. Urine output 1200 and no emesis, 3 bowel movements. OBJECTIVE: GENERAL: Mary Beth Castellanos is a 43-year-old female. VITAL SIGNS: TPR is 96.6. 73, 16, blood pressure 118/74. HEENT: Negative. NECK: Supple. HEART: Regular rate and rhythm. LUNGS: Clear. ABDOMEN: When she does stand up, above the incision, there is a golf ball sized bulging midline. When lying down, that area is soft and spongy. It does not feel like a seroma or hematoma. [place] are intact. Abdominal binder has been on. EXTREMITIES: Without peripheral edema. ASSESSMENT: 1. Exploratory laparotomy, reduction of small bowel volvulus and closure of internal hernia, placement of Interceed mesh for small bowel volvulus involving the jejunostomy. Date of surgery 11/19/2017. Surgeon, Chester Easley MD. 2. Postop ileus. PLAN: 1. Clear liquid diet. 2. Change Dulcolax suppositories to b.i.d. p.r.n. 3. Milk of magnesia 30 mL onetime. 4. Dulcolax tablet 20 mg p.o. 1 hour after milk of magnesium. 5. Reglan 10 mg IV q.6 h. scheduled. 6. Good pulmonary toilet. 7. We will evaluate p.r.n. or in a.m. Lauryn Cueto PA-C /[id number]
[2018-11-22] MEDS ORDERED: Metoclopramide 10 MG Tab PO PRN (15:00)
[2018-11-23] MEDS: Acetaminophen/oxyCODONE 325-5 MG Tab PO PRN ×5 (03:56→22:29)
--- NOTE | 2018-11-23 05:38 | CRLCR ---
INDICATION: Post operative ileus TECHNIQUE: Abdominal radiograph 2 views COMPARISON: 11/22/2018. FINDINGS: Bowel: Moderate distention of the entire colon with a large amount of stool is present from the cecum to the rectum. While pneumoperitoneum below the right hemidiaphragm is not as well visible, there is right lower sign involving the hepatic flexure, consistent with pneumoperitoneum from recent surgery. Midline skin nataliia are present in the lower abdomen. Surgical clips are noted in the right upper quadrant from prior cholecystectomy. Soft tissue: See above. No suspicious calcifications noted. Bone: Unremarkable for age. IMPRESSIONS: 1. Moderate distention of the entire colon with a large amount of stool is present from the cecum to the rectum. The appearance is similar to prior exam. 2. While pneumoperitoneum below the right hemidiaphragm is not as well visible, there is right lower sign involving the hepatic flexure, consistent with pneumoperitoneum from recent surgery. Dictated by John Gutierrez MD @ 11/23/2018 5:36:08 AM Dictated by: John Gutierrez MD @ 11/23/2018 05:36:13 (Electronically Signed)
[2018-11-23] MEDS: Heparin Sodium 5,000 Units/ML Vial SUBCUT SCH ×2 (05:52→18:10)
[2018-11-23] MEDS: Pantoprazole 40 MG Tab.CR PO SCH ×2 (07:21→15:46)
[2018-11-23] MEDS: Cyclobenzaprine 10 MG Tab PO PRN ×3 (07:26→22:33)
--- NOTE | 2018-11-23 08:24 | PCM.SURGPN ---
- General Info Date of Service: 11/23/18 Date of Surgery/Procedure: 11/19/18 POD#: 4 Functional Status: Reports: Pain Controlled (Percocet 325-5 mg PO 1-2 tabs every 4 hours PRN for pain.), Tolerating Diet (Will advance to a Step III diet today.), Ambulating, Urinating (4800 mL urine output) - Review of Systems Systems Review Comment:: Mary Beth Castellanos is a 43-year-old who remains afebrile with stable vital signs. She is on sips of clear liquids for post-op ileus. Her flattened upright today showed increased amounts of stool. She has been getting Dulcolax suppository but we will add MiraLax today for bowel stimulation. She has had 4 BMs now. Oral intake was 2122 mL with no emesis. All other pertinent review of systems are negative. - Patient Data Vitals - Most Recent: Last Vital Signs Temp 35.3 C 11/23/18 07:00 Pulse 66 11/23/18 07:00 Resp 16 11/23/18 07:00 BP 121/79 11/23/18 07:00 Pulse Ox 98 11/23/18 07:00 Weight - Most Recent: 68.629 kg I&O - Last 24 Hours: Intake & Output 11/22/18 11/23/18 11/23/18 22:59 06:59 14:59 Intake Total 200 362 Output Total 3600 1400 Balance -3400 362 -1400 Lab Results Last 24 Hrs: Laboratory Results - last 24 hr 11/23/18 Range/Units 07:58 WBC 5.2 (4.5-11.0) K/uL RBC 3.40 (3.30-5.50) M/uL Hgb 10.9 L (12.0-15.0) g/dL Hct 35.6 L (36.0-48.0) % MCV 105 H (80-98) fL MCH 32 H (27-31) pg MCHC 31 L (32-36) % Plt Count 294 (150-400) K/uL Med Orders - Current: Current Medications Bisacodyl (Dulcolax) 10 mg RECTAL BID PRN PRN Reason: constipation Calcium Carbonate/Glycine (Tums) 1,000 mg PO Q2H PRN PRN Reason: Indigestion Last Admin: 11/21/18 01:57 Dose: 1,000 mg Cyclobenzaprine HCl (Flexeril) 10 mg PO Q6H PRN PRN Reason: muscle spasms Last Admin: 11/23/18 07:26 Dose: 10 mg Diphenhydramine HCl (Benadryl) 50 mg PO Q4H PRN PRN Reason: Itching Last Admin: 11/20/18 08:39 Dose: 50 mg Heparin Sodium (Porcine) (Heparin Sodium) 5,000 units SUBCUT Q12H [facility] Last Admin: 11/23/18 05:52 Dose: 5,000 units Hydroxyzine HCl (Vistaril) 100 mg IM Q4H PRN PRN Reason: pain Labetalol HCl (Normodyne) 5 mg IVPUSH Q5M PRN PRN Reason: SBP over 160 OR DBP over 95 Metoclopramide HCl (Reglan) 10 mg PO Q6H PRN PRN Reason: Nausea/Vomiting Desogestrel-Ethinyl Estradiol ([place] 28 Day)Pom 0 each PO DAILY [facility] Last Admin: 11/22/18 09:06 Dose: Not Given Ondansetron HCl (Zofran Odt) 4 mg PO Q4H PRN PRN Reason: Nausea/Vomiting Last Admin: 11/21/18 02:39 Dose: 4 mg Oxycodone/Acetaminophen (Percocet 325-5 Mg) 1 - 2 tab PO Q4H PRN PRN Reason: paiin Last Admin: 11/23/18 03:56 Dose: 2 tab Pantoprazole Sodium (Protonix) 40 mg PO BIDAC [facility] Last Admin: 11/23/18 07:21 Dose: 40 mg Polyethylene Glycol (Miralax) 119 gm PO ONETIME ONE Stop: 11/23/18 09:01 Discontinued Medications Acetaminophen (Tylenol Extra Strength) 1,000 mg PO ONETIME ONE Stop: 11/19/18 05:31 Last Admin: 11/19/18 05:55 Dose: 1,000 mg Acetaminophen (Tylenol) 650 mg PO Q6H [facility] Last Admin: 11/20/18 07:56 Dose: 650 mg Bisacodyl (Dulcolax) 10 mg RECTAL BID [facility] Last Admin: 11/21/18 20:53 Dose: 10 mg Bisacodyl (Dulcolax) 20 mg PO ONETIME ONE Stop: 11/22/18 09:31 Last Admin: 11/22/18 09:07 Dose: 20 mg Bupivacaine HCl/Epinephrine Bitart (Marcaine 0.5%/Epinephrine 1:200,000) Confirm Administered Dose 50 ml .ROUTE .STK-MED ONE Stop: 11/19/18 07:54 Last Admin: 11/19/18 08:03 Dose: 40 ml Celecoxib (Celebrex) 200 mg PO ONETIME ONE Stop: 11/19/18 05:31 Last Admin: 11/19/18 05:54 Dose: 200 mg Celecoxib (Celebrex) 200 mg PO DAILY@0800 [facility] Last Admin: 11/20/18 07:56 Dose: 200 mg Ropivacaine 34 ml/Dexamethasone 8 mg/Epinephrine HCl 0.4 mg/ Sodium Chloride 43.6 ml 0 ml NERVRT ASDIRECTED [facility] Last Admin: 11/19/18 07:56 Dose: 80 syringe Cyanocobalamin (Vitamin B12) 1,000 mcg IM ONETIME ONE Stop: 11/21/18 09:01 Last Admin: 11/21/18 09:47 Dose: 1,000 mcg Dexamethasone (Dexamethasone) Confirm Administered Dose 4 mg .ROUTE .STK-MED ONE Stop: 11/19/18 07:11 Diphenhydramine HCl (Benadryl) 50 mg IVPUSH Q4H PRN PRN Reason: ITCHING Fentanyl (Sublimaze) Confirm Administered Dose 250 mcg .ROUTE .STK-MED ONE Stop: 11/19/18 07:10 Fentanyl (Sublimaze) Confirm Administered Dose 250 mcg .ROUTE .STK-MED ONE Stop: 11/19/18 07:47 Glycopyrrolate (Robinul) Confirm Administered Dose 1 mg .ROUTE .STK-MED ONE Stop: 11/19/18 07:11 Cefoxitin Sodium 2 gm/ Sodium (Chloride) 50 mls @ 100 mls/hr IV ONETIME ONE Stop: 11/19/18 07:59 Last Admin: 11/19/18 07:11 Dose: 100 mls/hr Dextrose/Lactated Ringer's (Dextrose 5%-Lactated Ringers) 1,000 mls @ 100 mls/ hr IV ASDIRECTED [facility] Last Admin: 11/19/18 05:54 Dose: 100 mls/hr Ketamine HCl 50 mg/ Sodium (Chloride) 50 mls @ 17.1 mls/hr IV ASDIRECTED [facility] Dextrose/Lactated Ringer's (Dextrose 5%-Lactated Ringers) 1,000 mls @ 150 mls[facility] Last Admin: 11/20/18 06:13 Dose: 150 mls/hr Multivitamins/Minerals 10 ml/Thiamine HCl 100 mg/ Chromium/Copper/Manganese/ Seleni/Zn 1 ml/ Dextrose/Lactated Ringer's 1,012 mls @ 149.852 mls/hr IV DAILY@ 1600 [facility] Last Admin: 11/20/18 15:50 Dose: 149.852 mls/hr Cefoxitin Sodium 2 gm/ Sodium (Chloride) 50 mls @ 100 mls/hr IV Q6H [facility] Stop: 11/19/18 20:29 Last Admin: 11/19/18 19:31 Dose: 100 mls/hr Dextrose/Lactated Ringer's (Dextrose 5%-Lactated Ringers) 1,000 mls @ 80 mls/ [facility] Last Admin: 11/21/18 01:59 Dose: 80 mls/hr Dextrose/Lactated Ringer's (Dextrose 5%-Lactated Ringers) 1,000 mls @ 100 mls/ hr IV [facility] Last Admin: 11/22/18 02:33 Dose: 100 mls/hr Multivitamins/Minerals 10 ml/Thiamine HCl 100 mg/ Chromium/Copper/Manganese/ Seleni/Zn 1 ml/ Dextrose/Lactated Ringer's 1,012 mls @ 100 mls/hr IV DAILY@ 1600 [facility] Last Admin: 11/21/18 16:27 Dose: 100 mls/hr Iohexol (Omnipaque-300) 50 ml PO ONETIME ONE Stop: 11/20/18 03:54 Last Admin: 11/20/18 04:02 Dose: 50 ml Ketamine HCl (Ketalar) [facility] Magnesium Hydroxide (Milk Of Magnesia) 30 ml PO ONETIME ONE Stop: 11/22/18 08:31 Last Admin: 11/22/18 09:05 Dose: 30 ml Meropenem (Merrem) Confirm Administered Dose 500 mg .ROUTE .STK-MED ONE Stop: 11/19/18 06:40 Metoclopramide HCl (Reglan) 10 mg IVPUSH Q6H PRN PRN Reason: NAUSEA NOT CONTROL BY ZOFRAN Last Admin: 11/21/18 03:17 Dose: 10 mg Metoclopramide HCl (Reglan) 10 mg IVPUSH Q6H [facility] Last Admin: 11/22/18 09:05 Dose: 10 mg Miscellaneous Information (Remove Patch) 1 ea TRDERM ONETIME ONE Stop: 11/21/18 10:01 Last Admin: 11/21/18 09:46 Dose: Not Given Morphine Sulfate (Morphine [employer] 150 Mg In 30 Ml) 0 mg IV ASDIRECTED PRN; Protocol PRN Reason: Pain Last Admin: 11/19/18 07:41 Dose: 1 mg Naloxone HCl (Narcan) 0.1 mg IV ASDIRECTED PRN PRN Reason: decreased respiratory rate Neostigmine Methylsulfate (Neostigmine) Confirm Administered Dose 5 mg .ROUTE .STK-MED ONE Stop: 11/19/18 07:11 Scopolamine Patch (Check) 1 each TOP DAILY [facility] Stop: 11/21/18 11:18 Last Admin: 11/21/18 09:46 Dose: Not Given Ondansetron HCl (Zofran) Confirm Administered Dose 4 mg .ROUTE .STK-MED ONE Stop: 11/19/18 07:11 Ondansetron HCl (Zofran) 4 mg IVPUSH Q4H PRN PRN Reason: Nausea/Vomiting Last Admin: 11/19/18 19:19 Dose: 4 mg Pantoprazole Sodium (Protonix Iv) 40 mg IVPUSH Q24H [facility] Last Admin: 11/20/18 15:50 Dose: 40 mg Propofol (Diprivan 20 Ml) Confirm Administered Dose 200 mg .ROUTE .STK-MED ONE Stop: 11/19/18 07:11 Rocuronium [place] (Zemuron) Confirm Administered Dose 50 mg .ROUTE .STK-MED ONE Stop: 11/19/18 07:11 Scopolamine (Transderm-Scop) 1.5 mg TOP Q72H [facility] Stop: 11/21/18 10:00 Last Admin: 11/19/18 14:31 Dose: 1.5 mg Succinylcholine Chloride (Quelicin) Confirm Administered Dose 200 mg .ROUTE .STK -MED ONE Stop: 11/19/18 07:11 - Exam Wound/Incisions: Healing Well (and bluge above incision was inspected by Dr. Easley and this is of no concern. Normal bulging that will dissipate with time.) General: Alert, Oriented Neck: Supple Lungs: Clear to Auscultation, Normal Respiratory Effort Cardiovascular: Regular Rate, Regular Rhythm GI/Abdominal Exam: Normal Bowel Sounds (Oziel are intact. Abdominal binder is on.) Extremities: No Pedal Edema Neurological: No New Focal Deficit Psy/Mental Status: Normal Affect, Normal Mood - Problem List Review Problem List Initiated/Reviewed/Updated: Yes - My Orders Last 24 Hours: Active Orders 24 hr Category Date Time Status Bariatric Diet [DIET] Diet 11/23/18 Breakfast Active Abdomen 2V AP Flat Upright [CR] DAILY Exams 11/24/18 04:00 Ordered COMPREHENSIVE METABOLIC PN,CMP [CHEM] Routine Lab 11/23/18 07:58 Received MAGNESIUM [CHEM] Routine Lab 11/23/18 07:58 Received PHOSPHORUS [CHEM] Routine Lab 11/23/18 07:58 Received TSH ULTRASENSITIVE [CHEM] Routine Lab 11/23/18 07:58 Received Bisacodyl [Dulcolax] Med 11/22/18 07:57 Active 10 mg RECTAL BID PRN Metoclopramide [Reglan] Med 11/22/18 15:00 Active 10 mg PO Q6H PRN Polyethylene Glycol 3350 [MiraLAX] Med 11/23/18 09:00 Once 119 gm PO ONETIME ONE Medication Orders Bisacodyl (Dulcolax) 10 mg RECTAL BID PRN PRN Reason: constipation Calcium Carbonate/Glycine (Tums) 1,000 mg PO Q2H PRN PRN Reason: Indigestion Last Admin: 11/21/18 01:57 Dose: 1,000 mg Cyclobenzaprine HCl (Flexeril) 10 mg PO Q6H PRN PRN Reason: muscle spasms Last Admin: 11/23/18 07:26 Dose: 10 mg Admin: 11/22/18 21:03 Dose: 10 mg Admin: 11/22/18 12:50 Dose: 10 mg Admin: 11/22/18 06:34 Dose: 10 mg Admin: 11/21/18 19:43 Dose: 10 mg Admin: 11/21/18 00:00 Dose: 10 mg Admin: 11/20/18 15:55 Dose: 10 mg Admin: 11/20/18 08:40 Dose: 10 mg Diphenhydramine HCl (Benadryl) 50 mg PO Q4H PRN PRN Reason: Itching Last Admin: 11/20/18 08:39 Dose: 50 mg Admin: 11/20/18 02:07 Dose: 50 mg Admin: 11/19/18 11:58 Dose: 50 mg Heparin Sodium (Porcine) (Heparin Sodium) 5,000 units SUBCUT Q12H [facility] Last Admin: 11/23/18 05:52 Dose: 5,000 units Admin: 11/22/18 17:22 Dose: 5,000 units Admin: 11/22/18 06:56 Dose: 5,000 units Admin: 11/21/18 18:32 Dose: 5,000 units Admin: 11/21/18 06:18 Dose: 5,000 units Admin: 11/20/18 18:21 Dose: 5,000 units Admin: 11/20/18 06:14 Dose: 5,000 units Admin: 11/19/18 17:30 Dose: 5,000 units Hydroxyzine HCl (Vistaril) 100 mg IM Q4H PRN PRN Reason: pain Labetalol HCl (Normodyne) 5 mg IVPUSH Q5M PRN PRN Reason: SBP over 160 OR DBP over 95 Metoclopramide HCl (Reglan) 10 mg PO Q6H PRN PRN Reason: Nausea/Vomiting Desogestrel-Ethinyl Estradiol ([place] 28 Day)Pom 0 each PO DAILY [facility] Last Admin: 11/22/18 09:06 Dose: Admin: 11/21/18 09:45 Dose: Not Given Admin: 11/20/18 09:50 Dose: Ondansetron HCl (Zofran Odt) 4 mg PO Q4H PRN PRN Reason: Nausea/Vomiting Last Admin: 11/21/18 02:39 Dose: 4 mg Admin: 11/20/18 18:20 Dose: 4 mg Oxycodone/Acetaminophen (Percocet 325-5 Mg) 1 - 2 tab PO Q4H PRN PRN Reason: paiin Last Admin: 11/23/18 03:56 Dose: 2 tab Admin: 11/22/18 21:56 Dose: 2 tab Admin: 11/22/18 17:25 Dose: 2 tab Admin: 11/22/18 12:50 Dose: 2 tab Admin: 11/22/18 09:11 Dose: 2 tab Admin: 11/22/18 02:36 Dose: 2 tab Admin: 11/21/18 22:09 Dose: 1 tab Admin: 11/21/18 20:52 Dose: 1 tab Admin: 11/21/18 16:26 Dose: 2 tab Admin: 11/21/18 11:57 Dose: 2 tab Admin: 11/21/18 06:26 Dose: 2 tab Admin: 11/21/18 00:00 Dose: 2 tab Pantoprazole Sodium (Protonix) 40 mg PO BIDAC [facility] Last Admin: 11/23/18 07:21 Dose: 40 mg Admin: 11/22/18 15:54 Dose: 40 mg Admin: 11/22/18 07:23 Dose: 40 mg Admin: 11/21/18 16:31 Dose: 40 mg Admin: 11/21/18 09:44 Dose: 40 mg Polyethylene Glycol (Miralax) 119 gm PO ONETIME ONE Stop: 11/23/18 09:01 - Assessment Assessment (Free Text/Narrative):: 1. Exploratory laparotomy, reduction of small bowel volvulus and closure of internal hernia, placement of Interceed mesh for small bowel volvulus involving the jejunostomy. Date of Surgery: 11/19/18. Surgeon: Chester Easley MD. 2. Post-Op ileus. - Plan Plan (Free Text/Narrative):: 1. Give MiraLax 119 grams one time PO. 2. Abdominal x-ray flat and upright in the AM. 3. TSH, CMP, Mg and Phos labs in the AM. 4. Start Step III diet.
[2018-11-23] MEDS: DESOGESTREL ETHINYL ESTRADIOL PO SCH (08:57)
[2018-11-23] MEDS ORDERED: Polyethylene Glycol 3350 Powder 17 GM Packet PO ONE (09:00)
[2018-11-23] MEDS: diphenhydrAMINE 25 MG Cap PO PRN (15:54)
[2018-11-24] MEDS: Acetaminophen/oxyCODONE 325-5 MG Tab PO PRN ×5 (03:30→22:45)
--- NOTE | 2018-11-24 04:44 | CRLCR ---
Indication: Postop ileus Technique: KUB 2 view Comparison: November 23, 2018 Findings/Impression: : Interval decreased without complete resolution of large amount of feces in the colon. No evidence for obstruction or ileus. Lower midline laparotomy skin nataliia noted. Surgical clips in the right upper quadrant. Dictated by Gabrielle Perez MD @ Nov 24 2018 4:40AM Signed by Dr. Gabrielle Perez @ Nov 24 2018 4:42AM
[2018-11-24] MEDS: Heparin Sodium 5,000 Units/ML Vial SUBCUT SCH ×2 (05:59→18:30)
--- NOTE | 2018-11-24 07:14 | PCM.SURGPN ---
- General Info Date of Service: 11/24/18 Date of Surgery/Procedure: 11/19/18 POD#: 5 Functional Status: Reports: Pain Controlled (Percocet 325-5 mg 1-2 tabs every 4 hours PRN for pain), Tolerating Diet (Step III diet and will continue this regimen today), Ambulating, Urinating - Review of Systems Systems Review Comment:: The patient remained afebrile with stable vital signs. She states bowels are beginning to move with 2 BMs. Pain is well controlled on Percocet. I & O values are good. No new pertinent positive or negative review of systems overnight. The patient does not have any questions or concerns. Dr. Easley recommended one more day in the hospital to intake MiraLax one more time and get a follow-up abdominal x-ray for constipation. - Patient Data Vitals - Most Recent: Last Vital Signs Temp 35.4 C 11/24/18 03:00 Pulse 81 11/24/18 03:00 Resp 16 11/24/18 03:00 BP 119/74 11/24/18 03:00 Pulse Ox 94 L 11/24/18 03:00 Weight - Most Recent: 68.629 kg I&O - Last 24 Hours: Intake & Output 11/23/18 11/24/18 11/24/18 22:59 06:59 14:59 Intake Total 1660 Balance 1660 Lab Results Last 24 Hrs: Laboratory Results - last 24 hr 11/23/18 11/23/18 Range/Units 07:58 07:58 WBC 5.2 (4.5-11.0) K/uL RBC 3.40 (3.30-5.50) M/uL Hgb 10.9 L (12.0-15.0) g/dL Hct 35.6 L (36.0-48.0) % MCV 105 H (80-98) fL MCH 32 H (27-31) pg MCHC 31 L (32-36) % Plt Count 294 (150-400) K/uL Sodium 140 (140-148) mmol/L Potassium 3.9 (3.6-5.2) mmol/L Chloride 103 (100-108) mmol/L Carbon Dioxide 29 (21-32) mmol/L Anion Gap 8.4 (5.0-14.0) mmol/L BUN 5 L D (7-18) mg/dL Creatinine 0.6 (0.6-1.0) mg/dL Est Cr Clr Drug Dosing 114.97 mL/min Estimated GFR (MDRD) > 60 (>60) Glucose 107 H (74-106) mg/dL Calcium 8.7 (8.5-10.1) mg/dL Phosphorus 3.7 (2.5-4.9) mg/dL Magnesium 1.9 (1.8-2.4) mg/dL Total Bilirubin 0.6 (0.2-1.0) mg/dL AST 64 H D (15-37) U/L ALT 74 D (12-78) U/L Alkaline Phosphatase 86 (46-116) U/L Total Protein 6.8 (6.4-8.2) g/dL Albumin 2.9 L (3.4-5.0) g/dL Globulin 3.9 H (2.3-3.5) g/dL Albumin/Globulin Ratio 0.7 L (1.2-2.2) TSH, Ultra Sensitive 0.827 (0.358-3.740) uIU/mL Med Orders - Current: Current Medications Bisacodyl (Dulcolax) 10 mg RECTAL BID PRN PRN Reason: constipation Calcium Carbonate/Glycine (Tums) 1,000 mg PO Q2H PRN PRN Reason: Indigestion Last Admin: 11/21/18 01:57 Dose: 1,000 mg Cyclobenzaprine HCl (Flexeril) 10 mg PO Q6H PRN PRN Reason: muscle spasms Last Admin: 11/23/18 22:33 Dose: 10 mg Diphenhydramine HCl (Benadryl) 50 mg PO Q4H PRN PRN Reason: Itching Last Admin: 11/23/18 15:54 Dose: 50 mg Heparin Sodium (Porcine) (Heparin Sodium) 5,000 units SUBCUT Q12H [facility] Last Admin: 11/24/18 05:59 Dose: 5,000 units Hydroxyzine HCl (Vistaril) 100 mg IM Q4H PRN PRN Reason: pain Labetalol HCl (Normodyne) 5 mg IVPUSH Q5M PRN PRN Reason: SBP over 160 OR DBP over 95 Metoclopramide HCl (Reglan) 10 mg PO Q6H PRN PRN Reason: Nausea/Vomiting Desogestrel-Ethinyl Estradiol ([place] 28 Day)Pom 0 each PO DAILY [facility] Last Admin: 11/23/18 08:57 Dose: Not Given Ondansetron HCl (Zofran Odt) 4 mg PO Q4H PRN PRN Reason: Nausea/Vomiting Last Admin: 11/21/18 02:39 Dose: 4 mg Oxycodone/Acetaminophen (Percocet 325-5 Mg) 1 - 2 tab PO Q4H PRN PRN Reason: paiin Last Admin: 11/24/18 03:30 Dose: 2 tab Pantoprazole Sodium (Protonix) 40 mg PO BIDAC [facility] Last Admin: 11/23/18 15:46 Dose: 40 mg Discontinued Medications Acetaminophen (Tylenol Extra Strength) 1,000 mg PO ONETIME ONE Stop: 11/19/18 05:31 Last Admin: 11/19/18 05:55 Dose: 1,000 mg Acetaminophen (Tylenol) 650 mg PO Q6H [facility] Last Admin: 11/20/18 07:56 Dose: 650 mg Bisacodyl (Dulcolax) 10 mg RECTAL BID [facility] Last Admin: 11/21/18 20:53 Dose: 10 mg Bisacodyl (Dulcolax) 20 mg PO ONETIME ONE Stop: 11/22/18 09:31 Last Admin: 11/22/18 09:07 Dose: 20 mg Bupivacaine HCl/Epinephrine Bitart (Marcaine 0.5%/Epinephrine 1:200,000) Confirm Administered Dose 50 ml .ROUTE .STK-MED ONE Stop: 11/19/18 07:54 Last Admin: 11/19/18 08:03 Dose: 40 ml Celecoxib (Celebrex) 200 mg PO ONETIME ONE Stop: 11/19/18 05:31 Last Admin: 11/19/18 05:54 Dose: 200 mg Celecoxib (Celebrex) 200 mg PO DAILY@0800 [facility] Last Admin: 11/20/18 07:56 Dose: 200 mg Ropivacaine 34 ml/Dexamethasone 8 mg/Epinephrine HCl 0.4 mg/ Sodium Chloride 43.6 ml 0 ml NERVRT ASDIRECTED [facility] Last Admin: 11/19/18 07:56 Dose: 80 syringe Cyanocobalamin (Vitamin B12) 1,000 mcg IM ONETIME ONE Stop: 11/21/18 09:01 Last Admin: 11/21/18 09:47 Dose: 1,000 mcg Dexamethasone (Dexamethasone) Confirm Administered Dose 4 mg .ROUTE .[facility] ONE Stop: 11/19/18 07:11 Diphenhydramine HCl (Benadryl) 50 mg IVPUSH Q4H PRN PRN Reason: ITCHING Fentanyl (Sublimaze) Confirm Administered Dose 250 mcg .ROUTE .[facility] ONE Stop: 11/19/18 07:10 Fentanyl (Sublimaze) Confirm Administered Dose 250 mcg .ROUTE .[facility] ONE Stop: 11/19/18 07:47 Glycopyrrolate (Robinul) Confirm Administered Dose 1 mg .ROUTE .[facility] ONE Stop: 11/19/18 07:11 Cefoxitin Sodium 2 gm/ Sodium (Chloride) 50 mls @ 100 mls/hr IV ONETIME ONE Stop: 11/19/18 07:59 Last Admin: 11/19/18 07:11 Dose: 100 mls/hr Dextrose/Lactated Ringer's (Dextrose 5%-Lactated Ringers) 1,000 mls @ 100 mls/ hr IV ASDIRECTED [facility] Last Admin: 11/19/18 05:54 Dose: 100 mls/hr Ketamine HCl 50 mg/ Sodium (Chloride) 50 mls @ 17.1 mls/hr IV ASDIRECTED [facility] Dextrose/Lactated Ringer's (Dextrose 5%-Lactated Ringers) 1,000 mls @ 150 mls/ hr IV ASDIRECTED [facility] Last Admin: 11/20/18 06:13 Dose: 150 mls/hr Multivitamins/Minerals 10 ml/Thiamine HCl 100 mg/ Chromium/Copper/Manganese/ Seleni/Zn 1 ml/ Dextrose/Lactated Ringer's 1,012 mls @ 149.852 mls/hr IV DAILY@ 1600 [facility] Last Admin: 11/20/18 15:50 Dose: 149.852 mls/hr Cefoxitin Sodium 2 gm/ Sodium (Chloride) 50 mls @ 100 mls/hr IV Q6H [facility] Stop: 11/19/18 20:29 Last Admin: 11/19/18 19:31 Dose: 100 mls/hr Dextrose/Lactated Ringer's (Dextrose 5%-Lactated Ringers) 1,000 mls @ 80 mls/ hr IV ASDIRECTED [facility] Last Admin: 11/21/18 01:59 Dose: 80 mls/hr Dextrose/Lactated Ringer's (Dextrose 5%-Lactated Ringers) 1,000 mls @ 100 mls/ hr IV ASDIRECTED [facility] Last Admin: 11/22/18 02:33 Dose: 100 mls/hr Multivitamins/Minerals 10 ml/Thiamine HCl 100 mg/ Chromium/Copper/Manganese/ Seleni/Zn 1 ml/ Dextrose/Lactated Ringer's 1,012 mls @ 100 mls/hr IV DAILY@ 1600 [facility] Last Admin: 11/21/18 16:27 Dose: 100 mls/hr Iohexol (Omnipaque-300) 50 ml PO ONETIME ONE Stop: 11/20/18 03:54 Last Admin: 11/20/18 04:02 Dose: 50 ml Ketamine HCl (Ketalar) 28 mg IV ASDIRECTED [facility] Magnesium Hydroxide (Milk Of Magnesia) 30 ml PO ONETIME ONE Stop: 11/22/18 08:31 Last Admin: 11/22/18 09:05 Dose: 30 ml Meropenem (Merrem) Confirm Administered Dose 500 mg .ROUTE .STK-MED ONE Stop: 11/19/18 06:40 Metoclopramide HCl (Reglan) 10 mg IVPUSH Q6H PRN PRN Reason: NAUSEA NOT CONTROL BY ZOFRAN Last Admin: 11/21/18 03:17 Dose: 10 mg Metoclopramide HCl (Reglan) 10 mg IVPUSH Q6H [facility] Last Admin: 11/22/18 09:05 Dose: 10 mg Miscellaneous Information (Remove Patch) 1 ea TRDERM ONETIME ONE Stop: 11/21/18 10:01 Last Admin: 11/21/18 09:46 Dose: Not Given Morphine Sulfate (Morphine Scrap Kettle Tender 150 Mg In 30 Ml) 0 mg IV ASDIRECTED PRN; Protocol PRN Reason: Pain Last Admin: 11/19/18 07:41 Dose: 1 mg Naloxone HCl (Narcan) 0.1 mg IV ASDIRECTED PRN PRN Reason: decreased respiratory rate Neostigmine Methylsulfate (Neostigmine) Confirm Administered Dose 5 mg .ROUTE .STK-MED ONE Stop: 11/19/18 07:11 Scopolamine Patch (Check) 1 each TOP DAILY [facility] Stop: 11/21/18 11:18 Last Admin: 11/21/18 09:46 Dose: Not Given Ondansetron HCl (Zofran) Confirm Administered Dose 4 mg .ROUTE .STK-MED ONE Stop: 11/19/18 07:11 Ondansetron HCl (Zofran) 4 mg IVPUSH Q4H PRN PRN Reason: Nausea/Vomiting Last Admin: 11/19/18 19:19 Dose: 4 mg Pantoprazole Sodium (Protonix Iv) 40 mg IVPUSH Q24H [facility] Last Admin: 11/20/18 15:50 Dose: 40 mg Polyethylene Glycol (Miralax) 119 gm PO ONETIME ONE Stop: 11/23/18 09:01 Last Admin: 11/23/18 08:57 Dose: 119 gm Propofol (Diprivan 20 Ml) Confirm Administered Dose 200 mg .ROUTE .STK-MED ONE Stop: 11/19/18 07:11 Rocuronium [place] (Zemuron) Confirm Administered Dose 50 mg .ROUTE .STK-MED ONE Stop: 11/19/18 07:11 Scopolamine (Transderm-Scop) 1.5 mg TOP Q72H [facility] Stop: 11/21/18 10:00 Last Admin: 11/19/18 14:31 Dose: 1.5 mg Succinylcholine Chloride (Quelicin) Confirm Administered Dose 200 mg .ROUTE .STK -MED ONE Stop: 11/19/18 07:11 - Exam General: Alert, Oriented Neck: Supple Lungs: Clear to Auscultation, Normal Respiratory Effort Cardiovascular: Regular Rate, Regular Rhythm Neurological: No New Focal Deficit Psy/Mental Status: Normal Affect, Normal Mood Physical Findings Comment:: 2 BMs with active bowel sounds Oral intake 3,060 mL Urine output 1,400 mL TSH is within normal limits on the lower end - Problem List Review Problem List Initiated/Reviewed/Updated: Yes - My Orders Last 24 Hours: Active Orders 24 hr Category Date Time Status Bariatric Diet [DIET] Diet 11/23/18 Breakfast Active Medication Orders Bisacodyl (Dulcolax) 10 mg RECTAL BID PRN PRN Reason: constipation Calcium Carbonate/Glycine (Tums) 1,000 mg PO Q2H PRN PRN Reason: Indigestion Last Admin: 11/21/18 01:57 Dose: 1,000 mg Cyclobenzaprine HCl (Flexeril) 10 mg PO Q6H PRN PRN Reason: muscle spasms Last Admin: 11/23/18 22:33 Dose: 10 mg Admin: 11/23/18 13:38 Dose: 10 mg Admin: 11/23/18 07:26 Dose: 10 mg Admin: 11/22/18 21:03 Dose: 10 mg Admin: 11/22/18 12:50 Dose: 10 mg Admin: 11/22/18 06:34 Dose: 10 mg Admin: 11/21/18 19:43 Dose: 10 mg Admin: 11/21/18 00:00 Dose: 10 mg Admin: 11/20/18 15:55 Dose: 10 mg Admin: 11/20/18 08:40 Dose: 10 mg Diphenhydramine HCl (Benadryl) 50 mg PO Q4H PRN PRN Reason: Itching Last Admin: 11/23/18 15:54 Dose: 50 mg Admin: 11/20/18 08:39 Dose: 50 mg Admin: 11/20/18 02:07 Dose: 50 mg Admin: 11/19/18 11:58 Dose: 50 mg Heparin Sodium (Porcine) (Heparin Sodium) 5,000 units SUBCUT Q12H [facility] Last Admin: 11/24/18 05:59 Dose: 5,000 units Admin: 11/23/18 18:10 Dose: 5,000 units Admin: 11/23/18 05:52 Dose: 5,000 units Admin: 11/22/18 17:22 Dose: 5,000 units Admin: 11/22/18 06:56 Dose: 5,000 units Admin: 11/21/18 18:32 Dose: 5,000 units Admin: 11/21/18 06:18 Dose: 5,000 units Admin: 11/20/18 18:21 Dose: 5,000 units Admin: 11/20/18 06:14 Dose: 5,000 units Admin: 11/19/18 17:30 Dose: 5,000 units Hydroxyzine HCl (Vistaril) 100 mg IM Q4H PRN PRN Reason: pain Labetalol HCl (Normodyne) 5 mg IVPUSH Q5M PRN PRN Reason: SBP over 160 OR DBP over 95 Metoclopramide HCl (Reglan) 10 mg PO Q6H PRN PRN Reason: Nausea/Vomiting Desogestrel-Ethinyl Estradiol ([place] 28 Day)Pom 0 each PO DAILY [facility] Last Admin: 11/23/18 08:57 Dose: Admin: 11/22/18 09:06 Dose: Admin: 11/21/18 09:45 Dose: Not Given Admin: 11/20/18 09:50 Dose: Ondansetron HCl (Zofran Odt) 4 mg PO Q4H PRN PRN Reason: Nausea/Vomiting Last Admin: 11/21/18 02:39 Dose: 4 mg Admin: 11/20/18 18:20 Dose: 4 mg Oxycodone/Acetaminophen (Percocet 325-5 Mg) 1 - 2 tab PO Q4H PRN PRN Reason: paiin Last Admin: 11/24/18 03:30 Dose: 2 tab Admin: 11/23/18 22:29 Dose: 2 tab Admin: 11/23/18 18:08 Dose: 2 tab Admin: 11/23/18 13:36 Dose: 2 tab Admin: 11/23/18 08:56 Dose: 2 tab Admin: 11/23/18 03:56 Dose: 2 tab Admin: 11/22/18 21:56 Dose: 2 tab Admin: 11/22/18 17:25 Dose: 2 tab Admin: 11/22/18 12:50 Dose: 2 tab Admin: 11/22/18 09:11 Dose: 2 tab Admin: 11/22/18 02:36 Dose: 2 tab Admin: 11/21/18 22:09 Dose: 1 tab Admin: 11/21/18 20:52 Dose: 1 tab Admin: 11/21/18 16:26 Dose: 2 tab Admin: 11/21/18 11:57 Dose: 2 tab Admin: 11/21/18 06:26 Dose: 2 tab Admin: 11/21/18 00:00 Dose: 2 tab Pantoprazole Sodium (Protonix) 40 mg PO BIDAC [facility] Last Admin: 11/23/18 15:46 Dose: 40 mg Admin: 11/23/18 07:21 Dose: 40 mg Admin: 11/22/18 15:54 Dose: 40 mg Admin: 11/22/18 07:23 Dose: 40 mg Admin: 11/21/18 16:31 Dose: 40 mg Admin: 11/21/18 09:44 Dose: 40 mg - Assessment Assessment (Free Text/Narrative):: 1. Exploratory laparotomy, reduction of small bowel volvulus and closure of internal hernia, placement of Interceed mesh for small bowel volvulus involving the jejunostomy. Date of Surgery: 11/19/18. Surgeon: Chester Easley MD. 2. Post-Op ileus. - Plan Plan (Free Text/Narrative):: 1. Give MiraLax 119 grams in 32 ounces of Gatorade/Crystal Lite PO this AM. 2. After MiraLax is completed, Dulcolax 3 tabs PO. 3. Start SennaPlus 2 tabs PO BID. 4. Abdominal x-ray flat and upright in the AM for follow-up constipation.
[2018-11-24] MEDS: Pantoprazole 40 MG Tab.CR PO SCH ×2 (08:50→18:30)
[2018-11-24] MEDS: DESOGESTREL ETHINYL ESTRADIOL PO SCH (08:51)
[2018-11-24] MEDS ORDERED: Polyethylene Glycol 3350 Powder 119 GM Bottle PO ONE (09:00)
[2018-11-24] MEDS ORDERED: Bisacodyl 5 MG Tab PO ONE (10:00)
[2018-11-24] MEDS: Cyclobenzaprine 10 MG Tab PO PRN ×2 (13:12→20:48)
[2018-11-25] MEDS: Acetaminophen/oxyCODONE 325-5 MG Tab PO PRN ×2 (03:04→09:59)
--- NOTE | 2018-11-25 04:58 | CRLCR ---
Indication: Constipation after bowel resection Technique: KUB 2 view Comparison: None Findings/Impression: : Lower midline skin nataliia noted. Large amount of feces remains throughout the colon. No evidence for bowel obstruction. Air in nondilated loops of small bowel and colon suggests ileus. Surgical clip noted in the right upper quadrant. Dictated by Gabrielle Perez MD @ Nov 25 2018 4:55AM Signed by Dr. Gabrielle Perez @ Nov 25 2018 4:57AM
[2018-11-25] MEDS: Heparin Sodium 5,000 Units/ML Vial SUBCUT SCH (05:34)
[2018-11-25 07:09] VITALS: BP 104/66
[2018-11-25] MEDS: Pantoprazole 40 MG Tab.CR PO SCH (07:12)
--- NOTE | 2018-11-25 07:45 | PCM.DCSUM1 ---
Discharge Summary - Hospital Course Free Text/Narrative:: Admission Diagnosis: 1. Status post exploratory laparotomy 2. Constipation 3. Diabetes Mellitus Type II 4. Vitamin D deficiency 5. Low back pain 6. Neck pain 7. Migraine 8. Allergic rhinitis due to pollen 9. Gastric bypass status for obesity Discharge Diagnosis: 1. Exploratory laparotomy, reduction of small bowel volvulus and closure of internal hernia. Placement of Interceed mesh for small bowel volvulus involving the jejunostomy. Date of surgery: 11/19/18. Surgeon: Chester Easley MD. 2. Post-Op ileus. Brief History: History: Mary Beth Castellanos is a 43-year-old female with symptoms of a small bowel obstruction. After preoperative evaluation and discussion of possible risks and possible complications, she wished to proceed with surgical procedure. Hospital Course: Emanuel had her surgery on 11/19/18. She had no operative complications. On postoperative day 1, she remained afebrile with stable bital sings. Tolerated Step III diet with good urine output. Pain was controlled on Morphine PUBLICITY MANAGER and Scopolamine patch. The Morphine PUBLICITY MANAGER was causing itching that was controlled with Benadryl, but the PUBLICITY MANAGER was DC and oral pain medications initiated. Started having abdominal spasms and was given Flexeril. Was not passing gas yet. Postoperative day 2, she had an emesis of 150 mL. Not passing gas and feels distended. Started TUMS due to heartburn. Pain was still controlled. Postoperative day 3, started sips of clear liquids for post-op ileus. Flat and upright x-ray showed increased amounts of stool. Started Dulcolax suppository which resulted in 3 BMs. Postoperative day 4, remained afebrile with stable vital signs. Still on sips of clear liquids for post-op ileus. Flat and upright x-ray continued to show increased amount of stool. Started MiraLax today with continue Dulcolax suppository which initiated 4 BMs. Postoperative day 5, remained afebrile with stable vital signs. Bowels are beginning to move regularly with 2 BMs today. One more day of MiraLax. Postoperative day 6, patient will be discharged with bowel stimulation regimen. - Discharge Data Discharge Date: 11/25/18 Discharge Disposition: Home, Self-Care 01 Condition: Good - Patient Summary/Data Consults: Consultations 11/19/18 09:59 Consult to Bariatric Services [CONS] Routine Comment: Consult to Industrial Cafeteria Manager [CONS] Routine Comment: Physician Instructions: Quantity: Respiratory Care Assess and Treatment [CONS] Routine Comment: Physician Instructions: Respiratory Care Assess and Treatment [CONS] Routine Comment: Physician Instructions: Post-Op Pneumonia Prevention - Patient Instructions Diet, Other: Continue Step III diet until follow-up appointment Activity: No Lifting Over 10 Pounds (for 6 weeks) Showering/Bathing: May Shower Wound/Incision, Other: Leave incision open but wear abdominal binder Notify Provider of: Fever, Increased Pain, Swelling and Redness, Nausea and/or Vomiting Other/Special Instructions: Incentive spirometer 10x every hour while awake. - Discharge Plan Home Medications: Home Meds Cholecalciferol (Vitamin D3) [Vitamin D3] 5,000 unit PO DAILY 12/17/13 [History] Cyanocobalamin (Vitamin B-12) [Vitamin B-12] 1,000 mcg PO DAILY 12/17/13 [ History] Multivitamin [Multi-Vitamin Daily] 2 each PO DAILY 12/17/13 [History] Vitamin B Complex [B Complex] 1 tab PO DAILY 03/01/16 [History] Acetaminophen [Tylenol Extra Strength] 1,000 mg PO Q6H PRN 11/17/18 [History] Ca Citrate/Mgox/Vit D3/B6/Min [Calcium Citrate Plus Tablet] 1 each PO DAILY 09/23 [History] Ferrous Fumarate [Ferretts] 106 mg PO BID 11/17/18 [History] Multi Enzyme Ox Bile 2,000 mg PO BID 11/17/18 [History] Vitamin A 8,000 unit PO DAILY 11/17/18 [History] Desogestrel-Ethinyl Estradiol [[place] 28 Day Tablet] 1 each PO DAILY [History] - Discharge Summary/Plan Comment DC Time >30 min.: Yes - Patient Data Vitals - Most Recent: Last Vital Signs Temp 36.4 C 11/25/18 07:08 Pulse 74 11/25/18 07:08 Resp 16 11/25/18 07:08 BP 104/66 11/25/18 07:08 Pulse Ox 94 L 11/25/18 07:08 Weight - Most Recent: 68.629 kg I&O - Last 24 hours: Intake & Output 11/24/18 11/25/18 11/25/18 22:59 06:59 14:59 Intake Total 980 Balance 980 Med Orders - Current: Current Medications Bisacodyl (Dulcolax) 10 mg RECTAL BID PRN PRN Reason: constipation Calcium Carbonate/Glycine (Tums) 1,000 mg PO Q2H PRN PRN Reason: Indigestion Last Admin: 11/21/18 01:57 Dose: 1,000 mg Cyclobenzaprine HCl (Flexeril) 10 mg PO Q6H PRN PRN Reason: muscle spasms Last Admin: 11/24/18 20:48 Dose: 10 mg Diphenhydramine HCl (Benadryl) 50 mg PO Q4H PRN PRN Reason: Itching Last Admin: 11/23/18 15:54 Dose: 50 mg Heparin Sodium (Porcine) (Heparin Sodium) 5,000 units SUBCUT Q12H [facility] Last Admin: 11/25/18 05:34 Dose: 5,000 units Hydroxyzine HCl (Vistaril) 100 mg IM Q4H PRN PRN Reason: pain Labetalol HCl (Normodyne) 5 mg IVPUSH Q5M PRN PRN Reason: SBP over 160 OR DBP over 95 Metoclopramide HCl (Reglan) 10 mg PO Q6H PRN PRN Reason: Nausea/Vomiting Desogestrel-Ethinyl Estradiol ([place] 28 Day)Pom 0 each PO DAILY [facility] Last Admin: 11/24/18 08:51 Dose: Not Given Ondansetron HCl (Zofran Odt) 4 mg PO Q4H PRN PRN Reason: Nausea/Vomiting Last Admin: 11/21/18 02:39 Dose: 4 mg Oxycodone/Acetaminophen (Percocet 325-5 Mg) 1 - 2 tab PO Q4H PRN PRN Reason: paiin Last Admin: 11/25/18 03:04 Dose: 1 tab [facility]op[facility]) [facility] Last Admin: 11/25/18 07:12 Dose: 40 mg Senna/Docusate Sodium (Senna Plus) 2 tab PO BID [facility] Last Admin: 11/24/18 20:48 Dose: 2 tab Discontinued Medications Acetaminophen (Tylenol Extra Strength) 1,000 mg PO ONETIME ONE Stop: 11/19/18 05:31 Last Admin: 11/19/18 05:55 Dose: 1,000 mg Acetaminophen (Tylenol) 650 mg PO Q6H [facility] Last Admin: 11/20/18 07:56 Dose: 650 mg Bisacodyl (Dulcolax) 10 mg RECTAL BID [facility] Last Admin: 11/21/18 20:53 Dose: 10 mg Bisacodyl (Dulcolax) 20 mg PO ONETIME ONE Stop: 11/22/18 09:31 Last Admin: 11/22/18 09:07 Dose: 20 mg Bisacodyl (Dulcolax) 15 mg PO ONETIME ONE Stop: 11/24/18 10:01 Last Admin: 11/24/18 09:08 Dose: 15 mg Bupivacaine HCl/Epinephrine Bitart (Marcaine 0.5%/Epinephrine 1:200,000) Confirm Administered Dose 50 ml .ROUTE .STK-MED ONE Stop: 11/19/18 07:54 Last Admin: 11/19/18 08:03 Dose: 40 ml Celecoxib (Celebrex) 200 mg PO ONETIME ONE Stop: 11/19/18 05:31 Last Admin: 11/19/18 05:54 Dose: 200 mg Celecoxib (Celebrex) 200 mg PO DAILY@0800 [facility] Last Admin: 11/20/18 07:56 Dose: 200 mg Ropivacaine 34 ml/Dexamethasone 8 mg/Epinephrine HCl 0.4 mg/ Sodium Chloride 43.6 ml 0 ml NERVRT ASDIRECTED [facility] Last Admin: 11/19/18 07:56 Dose: 80 syringe Cyanocobalamin (Vitamin B12) 1,000 mcg IM ONETIME ONE Stop: 11/21/18 09:01 Last Admin: 11/21/18 09:47 Dose: 1,000 mcg Dexamethasone (Dexamethasone) Confirm Administered Dose 4 mg .ROUTE .STK-MED ONE Stop: 11/19/18 07:11 Diphenhydramine HCl (Benadryl) 50 mg IVPUSH Q4H PRN PRN Reason: ITCHING Fentanyl (Sublimaze) Confirm Administered Dose 250 mcg .ROUTE .STK-MED ONE Stop: 11/19/18 07:10 Fentanyl (Sublimaze) Confirm Administered Dose 250 mcg .ROUTE .STK-MED ONE Stop: 11/19/18 07:47 Glycopyrrolate (Robinul) Confirm Administered Dose 1 mg .ROUTE .STK-MED ONE Stop: 11/19/18 07:11 Cefoxitin Sodium 2 gm/ Sodium (Chloride) 50 mls @ 100 mls/hr IV ONETIME ONE Stop: 11/19/18 07:59 Last Admin: 11/19/18 07:11 Dose: 100 mls/hr Dextrose/Lactated Ringer's (Dextrose 5%-Lactated Ringers) 1,000 mls @ 100 mls/ hr IV ASDIRECTED [facility] Last Admin: 11/19/18 05:54 Dose: 100 mls/hr Ketamine HCl 50 mg/ Sodium (Chloride) 50 mls @ 17.1 mls/hr IV ASDIRECTED [facility] Dextrose/Lactated Ringer's (Dextrose 5%-Lactated Ringers) 1,000 mls @ 150 mls/ hr IV ASDIRECTED [facility] Last Admin: 11/20/18 06:13 Dose: 150 mls/hr Multivitamins/Minerals 10 ml/Thiamine HCl 100 mg/ Chromium/Copper/Manganese/ Seleni/Zn 1 ml/ Dextrose/Lactated Ringer's 1,012 mls @ 149.852 mls/hr IV DAILY@ 1600 [facility] Last Admin: 11/20/18 15:50 Dose: 149.852 mls/hr Cefoxitin Sodium 2 gm/ Sodium (Chloride) 50 mls @ 100 mls/hr IV Q6H [facility] Stop: 11/19/18 20:29 Last Admin: 11/19/18 19:31 Dose: 100 mls/hr Dextrose/Lactated Ringer's (Dextrose 5%-Lactated Ringers) 1,000 mls @ 80 mls/ hr IV ASDIRECTED [facility] Last Admin: 11/21/18 01:59 Dose: 80 mls/hr Dextrose/Lactated Ringer's (Dextrose 5%-Lactated Ringers) 1,000 mls @ 100 mls/ hr IV ASDIRECTED [facility] Last Admin: 11/22/18 02:33 Dose: 100 mls/hr Multivitamins/Minerals 10 ml/Thiamine HCl 100 mg/ Chromium/Copper/Manganese/ Seleni/Zn 1 ml/ Dextrose/Lactated Ringer's 1,012 mls @ 100 mls/hr IV DAILY@ 1600 [facility] Last Admin: 11/21/18 16:27 Dose: 100 mls/hr Iohexol (Omnipaque-300) 50 ml PO ONETIME ONE Stop: 11/20/18 03:54 Last Admin: 11/20/18 04:02 Dose: 50 ml Ketamine HCl (Ketalar) 28 mg IV ASDIRECTED [facility] Magnesium Hydroxide (Milk Of Magnesia) 30 ml PO ONETIME ONE Stop: 11/22/18 08:31 Last Admin: 11/22/18 09:05 Dose: 30 ml Meropenem (Merrem) Confirm Administered Dose 500 mg .ROUTE .STK-MED ONE Stop: 11/19/18 06:40 Metoclopramide HCl (Reglan) 10 mg IVPUSH Q6H PRN PRN Reason: NAUSEA NOT CONTROL BY ZOFRAN Last Admin: 11/21/18 03:17 Dose: 10 mg Metoclopramide HCl (Reglan) 10 mg IVPUSH Q6H [facility] Last Admin: 11/22/18 09:05 Dose: 10 mg Miscellaneous Information (Remove Patch) 1 ea TRDERM ONETIME ONE Stop: 11/21/18 10:01 Last Admin: 11/21/18 09:46 Dose: Not Given Morphine Sulfate (Morphine Railroad Dispatcher 150 Mg In 30 Ml) 0 mg IV ASDIRECTED PRN; Protocol PRN Reason: Pain Last Admin: 11/19/18 07:41 Dose: 1 mg Naloxone HCl (Narcan) 0.1 mg IV ASDIRECTED PRN PRN Reason: decreased respiratory rate Neostigmine Methylsulfate (Neostigmine) Confirm Administered Dose 5 mg .ROUTE .STK-MED ONE Stop: 11/19/18 07:11 Scopolamine Patch (Check) 1 each TOP DAILY [facility] Stop: 11/21/18 11:18 Last Admin: 11/21/18 09:46 Dose: Not Given Ondansetron HCl (Zofran) Confirm Administered Dose 4 mg .ROUTE .STK-MED ONE Stop: 11/19/18 07:11 Ondansetron HCl (Zofran) 4 mg IVPUSH Q4H PRN PRN Reason: Nausea/Vomiting Last Admin: 11/19/18 19:19 Dose: 4 mg Pantoprazole Sodium (Protonix Iv) 40 mg IVPUSH Q24H [facility] Last Admin: 11/20/18 15:50 Dose: 40 mg Polyethylene Glycol (Miralax) 119 gm PO ONETIME ONE Stop: 11/23/18 09:01 Last Admin: 11/23/18 08:57 Dose: 119 gm Polyethylene Glycol (Miralax) 119 gm PO ONETIME ONE Stop: 11/24/18 09:01 Last Admin: 11/24/18 08:51 Dose: 119 gm Propofol (Diprivan 20 Ml) Confirm Administered Dose 200 mg .ROUTE .STK-MED ONE Stop: 11/19/18 07:11 Rocuronium Cullen (Zemuron) Confirm Administered Dose 50 mg .ROUTE .STK-MED ONE Stop: 11/19/18 07:11 Scopolamine (Transderm-Scop) 1.5 mg TOP Q72H [facility] Stop: 11/21/18 10:00 Last Admin: 11/19/18 14:31 Dose: 1.5 mg Succinylcholine Chloride (Quelicin) Confirm Administered Dose 200 mg .ROUTE .STK -MED ONE Stop: 11/19/18 07:11 - Exam Physical Findings Comments:: General: Mary Beth Castellanos is a 43-year-old female in no acute distress. HEENT: Negative. Neck: Supple. Heart: Regular rate and rhythm. Lungs: Clear. Abdomen: [place] intact. Expected tenderness with palpation. Abdominal binder was off but encouraged to wear it over clothing to reduce irritation. Extremities: Without peripheral edema. Disposition: Discharged to home. Condition: Stable and improving. Follow-Up Appointment: Lauryn Cueto PA-C on November 30 at 11:00 AM ( nataliia will be removed at this time).
[2018-11-25] MEDS: DESOGESTREL ETHINYL ESTRADIOL PO SCH (09:23)
[2018-11-25] MEDS: Cyclobenzaprine 10 MG Tab PO PRN (09:23)
--- NOTE | 2018-11-30 13:00 | OR ---
DATE OF PROCEDURE: 11/19/2018 PREOPERATIVE DIAGNOSIS: Small bowel obstruction. POSTOPERATIVE DIAGNOSES: 1. Small bowel obstruction associated with small bowel volvulus. 2. Extensive intraabdominal adhesions. OPERATIVE PROCEDURE: Exploratory laparotomy with: 1. Reduction of small bowel volvulus and closure of internal hernia (51663). 2. Placement of Interceed mesh to limit recurrent adhesion formation (19826). ANESTHESIA: General. SURGEON: Chester Easley MD [employer] SUPERVISOR: Lauryn Cueto PA-C and BARRY Garcia. INDICATIONS FOR PROCEDURE: A 43-year-old presenting with recurrent small bowel obstruction. This appeared most likely to be related to a volvulus. The plan is to proceed with a limited laparotomy. The previous laparoscopic approach resulted in recurrent bowel obstruction; therefore, a small laparotomy will be undertaken at this time. Potential risks of the procedure including bleeding, infection, injury to underlying viscera, possible need for bowel resection, possible recurrence of the problem over time were all reviewed, and the patient wishes to proceed. DETAILS OF PROCEDURE: The patient was taken to the operating room and after general endotracheal anesthesia was induced, a Dickinson catheter was inserted into the bladder and was removed at the end of the procedure. The abdomen was then prepped and draped, and bilateral subcostal transversus abdominis plane blocks were then placed using ultrasound guidance. A midline incision from the umbilicus upward for a length of roughly a handsbreadth was made and carried down through the skin and subcutaneous tissue and down into the fascia. The peritoneal cavity was then entered. The patient was noted to have an area of small bowel that was somewhat dusky. This was evaluated, and the patient appeared to have a volvulus underneath the leaves of the jejunojejunostomy with the bowel going from right to left direction underneath that defect. This was reduced and the bowel at that point all appeared to be entirely viable and there was no need for any resection or decompression at this time. The underlying mesenteric defect was then approximated with a running 2-0 silk stitch, and at that point, no further problems were noted. The abdomen was irrigated with antibiotic- containing saline solution. The patient did have quite a bit in the way of adhesions, particularly in the pelvis between the small bowel, some of the appendix epiploica, and the pelvic and lower abdominal wall. These had been lysed, and to limit recurrent adhesion formation, Interceed mesh was placed down into the pelvis and then up against the abdominal wall incision to displace the viscera from those surfaces and to limit recurrent adhesion formation. The midline fascia was then approximated with #2 Vicryl stitch and the incision then also anesthetized with some additional Marcaine placed along the wound edges. The incision was then closed with 2 layers of 3-0 and 4-0 Vicryl stitch deep and nataliia for the skin. Dressing was applied. The patient was taken to the recovery room in satisfactory condition. There were no evident complications. Physician clerical assistant, Lauryn Cueto, played an essential role in assisting in this case, helping to position the patient, retract structures as needed, as well as suturing and cutting sutures when indicated. Her presence improved the patient's safety and decreased the operative time. Chester Easley MD /[id number]
== END 2018-11-25 10:45 | disposition home or self-care (01) | DRG 223 ==
LOC: JP.SDSSCHI 05:27 → JP.SDS 05:27 → JP.MS 08:30 → EDSTATUS 09:00
PROVIDERS: ADMIT Surgery; ATTEND Surgery
PROC: 0DSA0ZZ Reposition Jejunum, Open Approach (ICD-10-PCS; principal; 2018-11-19)
PROC: 0DNW0ZZ Release Peritoneum, Open Approach (ICD-10-PCS; 2018-11-19)
PROC: 3E0M05Z Introduction of Adhesion Barrier into Peritoneal Cavity, Open Approach (ICD-10-PCS; 2018-11-19)
DX: K56.2 Volvulus (principal); K66.0 Peritoneal adhesions (postprocedural) (postinfection); K46.9 Unspecified abdominal hernia without obstruction or gangrene; K56.7 Ileus, unspecified; Z98.84 Bariatric surgery status; Z98.0 Intestinal bypass and anastomosis status; K91.2 Postsurgical malabsorption, not elsewhere classified; E53.8 Deficiency of other specified B group vitamins; E55.9 Vitamin D deficiency, unspecified; L29.9 Pruritus, unspecified; T40.2X5A Adverse effect of other opioids, initial encounter; Y92.230 Patient room in hospital as the place of occurrence of the external cause; K59.00 Constipation, unspecified; M54.2 Cervicalgia; M54.5 Low back pain; G43.909 Migraine, unspecified, not intractable, without status migrainosus; E11.9 Type 2 diabetes mellitus without complications
CPT/HCPCS: 36415; 74019; 74240; 80053; 81025; 82962; 83735; 84100; 84443; 85027; 94762; A9270-GY; C9113; J0171; J0330; J0694; J1100; J1644; J2185; J2270; J2405; J2704; J2710; J2765; J2795; J3010; J3411; J3420; J3490; J7042; J7050; Q9967

== ENCOUNTER 2019-02-18 16:56 | Inpatient (IN) | payer BC ==
[2019-02-18] MEDS ORDERED: Sodium Chloride 0.9% 10 ML Syringe FLUSH PRN (18:17)
[2019-02-18] MEDS ORDERED: Sodium Chloride 0.9% 1,000 ML IV SCH (18:30)
--- NOTE | 2019-02-18 18:41 | EDM.PDOC ---
ED HPI GENERAL MEDICAL PROBLEM - General Chief Complaint: Abdominal Pain Stated Complaint: CONCERNED ABOUT BOWEL OBSTRUCTION Time Seen by Provider: 02/18/19 18:05 Source of Information: Reports: Patient History Limitations: Reports: No Limitations - History of Present Illness INITIAL COMMENTS - FREE TEXT/NARRATIVE: 43-year-old female started having generalized upper abdominal pain at about 2 PM this afternoon. It is constant with exacerbations with pain level 9/10. Described as cramping and pressure. No aggravating or alleviating factors. She is status post gastric bypass and has had numerous bowel obstructions starting him 2013 related to this. She had a laparoscopic surgery most recently in November. She tells me her symptoms feel similar to prior bowel obstructions. She was seen in later today at a clinic and a CBC was done which was normal. There is also a flat and upright abdominal x-ray which was interpreted Later is normal. She decided to come here because this is where she has had surgeries in the past. Abdominal Pain Score (Numeric/FACES): 9 - Related Data Allergies Allergy/AdvReac Type Severity Reaction Status Date / Time doxycycline AdvReac Stomach Verified 02/18/19 17:35 Upset sumatriptan AdvReac Muscle Verified 02/18/19 17:35 Aches Home Meds: Home Meds Cholecalciferol (Vitamin D3) [Vitamin D3] 5,000 unit PO DAILY 12/17/13 [History] Cyanocobalamin (Vitamin B-12) [Vitamin B-12] 1,000 mcg PO DAILY 12/17/13 [ History] Multivitamin [Multi-Vitamin Daily] 2 each PO DAILY 12/17/13 [History] Vitamin B Complex [B Complex] 1 tab PO DAILY 03/01/16 [History] Acetaminophen [Tylenol Extra Strength] 1,000 mg PO Q6H PRN 11/17/18 [History] Ca Citrate/Mgox/Vit D3/B6/Min [Calcium Citrate Plus Tablet] 1 each PO DAILY 09/23 [History] Ferrous Fumarate [Ferretts] 106 mg PO BID 11/17/18 [History] Multi Enzyme Ox Bile 2,000 mg PO BID 11/17/18 [History] Vitamin A 8,000 unit PO DAILY 11/17/18 [History] Desogestrel-Ethinyl Estradiol [[place] 28 Day Tablet] 1 each PO DAILY [History] Cyclobenzaprine [Flexeril] 10 mg PO Q6H PRN #30 tablet 11/25/18 [Rx] Polyethylene Glycol 3350 [MiraLAX] 34 gm PO BID #100 packet 11/25/18 [Rx] Sennosides/Docusate Sodium [Senna-S Laxative Tablet] 2 each PO BEDTIME #60 tablet 11/25/18 [Rx] Past Medical History HEENT History: Reports: Allergic Rhinitis, Impaired Vision Gastrointestinal History: Reports: Bowel Obstruction, Colon Polyp Other Gastrointestinal History: revision of bariatris procedure [employer] History: Reports: Musculoskeletal History: Reports: Back Pain, Chronic, Fracture, Neck Pain, Chronic, Osteoarthritis, Other (See Below) Other Musculoskeletal History: ankle left metal plate left under eye Neurological History: Reports: Concussion, Head Trauma, Migraines Endocrine/Metabolic History: Reports: Diabetes, Type II Hematologic History: Reports: B12 Deficiency, Iron Deficiency - Past Surgical History GI Surgical History: Reports: Bariatric Procedure, Cholecystectomy, Colonoscopy , EGD Female Surgical History: Reports: Breast Reduction, Section Musculoskeletal Surgical History: Reports: None Social & Family History - Family History Family Medical History: Noncontributory - Tobacco Use Smoking Status *Q: Never Smoker - Caffeine Use Caffeine Use: Reports: Coffee ED ROS GENERAL - Review of Systems Review Of Systems: See Below Constitutional: Denies: Fever, Chills, Weakness HEENT: Reports: No Symptoms Respiratory: Denies: Shortness of Breath, Wheezing, Pleuritic Chest Pain, Cough Cardiovascular: Denies: Chest Pain, Palpitations GI/Abdominal: Reports: Abdominal Pain, Distension, Nausea. Denies: Black Stool , Bloody Stool, Constipation, Diarrhea, Difficulty Swallowing, Melena, Vomiting : Reports: No Symptoms ED EXAM, GI/ABD - Physical Exam Exam: See Below Exam Limited By: No Limitations General Appearance: Alert, Mild Distress Respiratory/Chest: No Respiratory Distress, Lungs Clear, Normal Breath Sounds Cardiovascular: Normal Peripheral Pulses, Regular Rate, Rhythm, No Edema GI/Abdominal Exam: Normal Bowel Sounds, Distended, Other (Tenderness across upper abdomen and midabdomen. ). No: Rigid, Rebound (Female) Exam: No: Adnexal Tenderness Course - Vital Signs Last Recorded V/S: Last Vital Signs Temp 34.7 C L 02/19/19 02:57 Pulse 65 02/19/19 02:57 Resp 16 02/19/19 02:57 BP 105/71 02/19/19 02:57 Pulse Ox 97 02/19/19 02:57 - Orders/Labs/Meds Orders: Active Orders 24 hr Category Date Time Status Peripheral IV Care [RC] Q12H Care 02/18/19 18:21 Active Sodium Chloride 0.9% [Normal Saline] 1,000 ml Med 02/18/19 18:30 Active IV ASDIRECTED Sodium Chloride 0.9% [Saline Flush] Med 02/18/19 18:17 Active 10 ml FLUSH ASDIRECTED PRN Peripheral IV Insertion Adult [OM.PC] Urgent Oth 02/18/19 18:17 Ordered Medication Orders Hydromorphone HCl (Dilaudid Library Circulation Department Chief 15 Mg In Ns 30 Ml) 0 mg IV ASDIRECTED PRN; Protocol PRN Reason: [employer]IC[employer] PAIN CONTROL Last Admin: 02/18/19 22:17 Dose: 15 mg Hydroxyzine HCl (Vistaril) 100 mg IM Q4H PRN PRN Reason: Pain Last Admin: 02/19/19 00:23 Dose: 100 mg Sodium Chloride (Normal Saline) 1,000 mls @ 125 mls/hr IV ASDIRECTED [facility] Last Admin: 02/18/19 19:00 Dose: 125 mls/hr Dextrose/Lactated Ringer's (Dextrose 5%-Lactated Ringers) 1,000 mls @ 125 mls/ hr IV ASDIRECTED [facility] Last Admin: 02/19/19 02:43 Dose: 125 mls/hr Metoclopramide HCl (Reglan) 10 mg IVPUSH Q6H [facility] Last Admin: 02/19/19 05:00 Dose: 10 mg Admin: 02/19/19 00:23 Dose: 10 mg Naloxone HCl (Narcan) 0.1 mg IV ASDIRECTED PRN PRN Reason: decreased respiratory rate Ondansetron HCl (Zofran) 4 mg IVPUSH Q4H PRN PRN Reason: Nausea Last Admin: 02/19/19 03:06 Dose: 4 mg Pantoprazole Sodium (Protonix Iv) 40 mg IV Q24H [facility] Last Admin: 02/18/19 22:21 Dose: 40 mg Sodium Chloride (Saline Flush) 10 ml FLUSH ASDIRECTED PRN PRN Reason: Keep Vein Open Last Admin: 02/18/19 19:00 Dose: 10 ml Labs: Laboratory Tests 02/18/19 02/18/19 02/18/19 Range/Units 18:17 18:17 18:17 WBC 7.5 (4.5-11.0) K/uL RBC 3.52 (3.30-5.50) M/uL Hgb 11.1 L (12.0-15.0) g/dL Hct 35.1 L (36.0-48.0) % MCV 100 H (80-98) fL MCH 32 H (27-31) pg MCHC 32 (32-36) % Plt Count 325 (150-400) K/uL Neut % (Auto) 59 (36-66) % Lymph % (Auto) 32 (24-44) % [place] % (Auto) 7 H (2-6) % Eos % (Auto) 3 (2-4) % Baso % (Auto) 0 (0-1) % Sodium 141 (140-148) mmol/L Potassium 3.5 L (3.6-5.2) mmol/L Chloride 106 (100-108) mmol/L Carbon Dioxide 30 (21-32) mmol/L Anion Gap 8.5 (5.0-14.0) mmol/L BUN 10 D (7-18) mg/dL Creatinine 0.6 (0.6-1.0) mg/dL Est Cr Clr Drug Dosing 114.34 mL/min Estimated GFR (MDRD) > 60 (>60) Glucose 86 (74-106) mg/dL Lactic Acid 1.1 (0.4-2.0) mmol/L Calcium 8.8 (8.5-10.1) mg/dL Total Bilirubin 0.7 (0.2-1.0) mg/dL AST 44 H (15-37) U/L ALT 62 (12-78) U/L Alkaline Phosphatase 89 (46-116) U/L Total Protein 6.8 (6.4-8.2) g/dL Albumin 3.7 (3.4-5.0) g/dL Globulin 3.1 (2.3-3.5) g/dL Albumin/Globulin Ratio 1.2 (1.2-2.2) Lipase 120 (73-393) U/L HCG, Qual 02/18/19 Range/Units 18:17 WBC (4.5-11.0) K/uL RBC (3.30-5.50) M/uL Hgb (12.0-15.0) g/dL Hct (36.0-48.0) % MCV (80-98) fL MCH (27-31) pg MCHC (32-36) % Plt Count (150-400) K/uL Neut % (Auto) (36-66) % Lymph % (Auto) (24-44) % [place] % (Auto) (2-6) % Eos % (Auto) (2-4) % Baso % (Auto) (0-1) % Sodium (140-148) mmol/L Potassium (3.6-5.2) mmol/L Chloride (100-108) mmol/L Carbon Dioxide (21-32) mmol/L Anion Gap (5.0-14.0) mmol/L BUN (7-18) mg/dL Creatinine (0.6-1.0) mg/dL Est Cr Clr Drug Dosing mL/min Estimated GFR (MDRD) (>60) Glucose (74-106) mg/dL Lactic Acid (0.4-2.0) mmol/L Calcium (8.5-10.1) mg/dL Total Bilirubin (0.2-1.0) mg/dL AST (15-37) U/L ALT (12-78) U/L Alkaline Phosphatase (46-116) U/L Total Protein (6.4-8.2) g/dL Albumin (3.4-5.0) g/dL Globulin (2.3-3.5) g/dL Albumin/Globulin Ratio (1.2-2.2) Lipase (73-393) U/L HCG, Qual Negative Meds: Medications Generic Name Dose Route Start Last Admin Trade Name Freq PRN Reason Stop Dose Admin Hydromorphone HCl 0 mg 02/18/19 22:03 02/18/19 22:17 Dilaudid Library Circulation Department Chief 15 Mg In Ns 30 Ml IV 15 mg ASDIRECTED PRN Administration [employer]IN [employer] Protocol Hydroxyzine HCl 100 mg 02/19/19 00:09 02/19/19 00:23 Vistaril IM 100 mg Q4H PRN Administration Pain Sodium Chloride 1,000 mls @ 125 mls/hr 02/18/19 18:30 02/18/19 19:00 Normal Saline IV 125 mls/hr ASDIRECTED ZAIDA Administration Dextrose/Lactated Ringer's 1,000 mls @ 125 mls/hr 02/19/19 02:00 02/19/19 02: 43 Dextrose 5%-Lactated Ringers IV 125 mls/hr ASDIRECTED ZAIAD Administration Metoclopramide HCl 10 mg 02/19/19 00:00 02/19/19 05:00 Reglan IVPUSH 10 mg Q6H ZAIDA Administration Naloxone HCl 0.1 mg 02/18/19 22:03 Narcan IV ASDIRECTED PRN decreased respiratory rate Ondansetron HCl 4 mg 02/18/19 23:08 02/19/19 03:06 Zofran IVPUSH 4 mg Q4H PRN Administration Nausea Pantoprazole Sodium 40 mg 02/18/19 22:15 02/18/19 22:21 Protonix Iv IV 40 mg Q24H ZAIDA Administration Sodium Chloride 10 ml 02/18/19 18:17 02/18/19 19:00 Saline Flush FLUSH 10 ml ASDIRECTED PRN Administration Keep Vein Open Discontinued Medications Generic Name Dose Route Start Last Admin Trade Name Freq PRN Reason Stop Dose Admin Multivitamins/Minerals 10 ml/ 1,011 mls @ 250 mls/hr 02/18/19 22:00 02/18/19 22:31 Chromium/Copper/Manganese/ IV 02/19/19 02:02 250 mls/hr Seleni/Zn 1 ml/ Lactated NOW ONE Administration Ringer's Morphine Sulfate 4 mg 02/18/19 19:04 02/18/19 19:18 Morphine IVPUSH 02/18/19 19:05 4 mg ONETIME ONE Administration Ondansetron HCl 4 mg 02/18/19 19:16 02/18/19 19:17 Zofran IVPUSH 02/18/19 19:17 4 mg ONETIME ONE Administration Ondansetron HCl Confirm 02/18/19 19:13 02/18/19 19:18 Zofran Administered 02/18/19 19:14 Not Given Dose 4 mg .ROUTE .STK-MED ONE Ondansetron HCl 4 mg 02/18/19 22:15 02/18/19 22:21 Zofran IVPUSH 4 mg Q4H ZAIDA Administration - Radiology Interpretation Free Text/Narrative:: I evaluated the abdominal x-ray which appeared to have some air-fluid levels of the small bowel. CT scan was interpreted as normal by the radiologist. - Re-Assessments/Exams Free Text/Narrative Re-Assessment/Exam: 02/18/19 21:[address] Easley of surgery who felt that there was probably a small bowel obstruction and that she should be admitted for further studies and possibly surgery. Departure - Departure Time of Disposition: 00:52 Disposition: Admitted As Inpatient 67 Condition: Fair Clinical Impression: Small bowel obstruction - Discharge Information *PRESCRIPTION DRUG MONITORING PROGRAM REVIEWED*: No *COPY OF PRESCRIPTION DRUG MONITORING REPORT IN PATIENT BRIDGETT: No - Problem List & Annotations (1) Small bowel obstruction due to adhesions SNOMED Code(s): 624727313 Code(s): K56.50 - INTESTNL ADHESIONS, UNSP TO PARTIAL VERSUS COMPLETE OBST Status: Acute Current Visit: Yes - My Orders Last 24 Hours: My Active Orders 02/18/19 18:17 Sodium Chloride 0.9% [Saline Flush] 10 ml FLUSH ASDIRECTED PRN Peripheral IV Insertion Adult [OM.PC] Urgent 02/18/19 18:21 Peripheral IV Care [RC] Q12H 02/18/19 18:30 Sodium Chloride 0.9% [Normal Saline] 1,000 ml IV ASDIRECTED - Assessment/Plan Last 24 Hours: My Active Orders 02/18/19 18:17 Sodium Chloride 0.9% [Saline Flush] 10 ml FLUSH ASDIRECTED PRN Peripheral IV Insertion Adult [OM.PC] Urgent 02/18/19 18:21 Peripheral IV Care [RC] Q12H 02/18/19 18:30 Sodium Chloride 0.9% [Normal Saline] 1,000 ml IV ASDIRECTED Plan: Patient will be admitted under care of for further testing and possible surgery.
[2019-02-18] MEDS ORDERED: Morphine 4 MG/ML Syringe IVPUSH ONE (19:04)
[2019-02-18] MEDS ORDERED: Ondansetron 4 MG/2 ML SDV ONE (19:13)
[2019-02-18] MEDS ORDERED: Ondansetron 4 MG/2 ML SDV IVPUSH ONE (19:16)
--- NOTE | 2019-02-18 20:41 | CRLCT ---
INDICATION: Abdominal pain. TECHNIQUE: CT abdomen and pelvis without contrast. COMPARISON: November 16, 2018. FINDINGS: Lower chest: Unremarkable. Liver: Normal in size and attenuation. No masses. Gallbladder and bile ducts: Status post cholecystectomy. Pancreas: Unremarkable. No mass or inflammation. Spleen: Normal in size. No masses. Adrenal glands: Normal in size. No nodules. Kidneys: Normal in size. No masses, stones, or hydronephrosis. GI tract: Gastric bypass changes appear unremarkable. There is mild stool and air-filled distention of the transverse colon. Small bowel is unremarkable. Normal appendix. Vasculature: Unremarkable. Lymph nodes: No lymphadenopathy. Abdominal wall/Omentum/Peritoneum: Unremarkable. No sign of mass or infiltration. No free air or significant free fluid. Pelvis: Unremarkable. No pelvic masses. Bones: Unremarkable for age. IMPRESSION: Mild stool and air-filled distention of the transverse colon. GI tract in remainder of the exam are otherwise unremarkable. No other acute or specific finding to explain abdominal pain. Dictated by Everardo Duke MD @ 02/18/2019 8:39:40 PM Please note that all CT scans at this facility use dose modulation, iterative reconstruction, and/or weight-based dosing when appropriate to reduce radiation dose to as low as reasonably achievable. Dictated by: Everardo Duke MD @ 02/18/2019 20:39:47 (Electronically Signed)
[2019-02-18] MEDS ORDERED: MVI, Adult with Vitamin K 10 ML, Chromium/Copper/Mang/Selen/Zn 1 ML in Lactated Ringers... IV ONE ×3 (22:00)
[2019-02-18] MEDS ORDERED: Naloxone 0.4 MG/ML SDV IV PRN (22:03)
[2019-02-18] MEDS ORDERED: HYDROmorphone/Normal Saline 15 MG/30 ML PCA IV PRN (22:03)
[2019-02-18] MEDS ORDERED: Ondansetron 4 MG/2 ML SDV IVPUSH SCH (22:15)
[2019-02-18] MEDS ORDERED: Pantoprazole 40 MG Vial IV SCH (22:15)
[2019-02-19] MEDS ORDERED: hydrOXYzine HCl 100 MG/2 ML SDV IM PRN (00:09)
[2019-02-19] MEDS: Metoclopramide 10 MG/2 ML SDV IVPUSH SCH ×3 (00:23→11:00)
[2019-02-19] MEDS: Dextrose 5%-Lactated Ringers 1,000 ML IV SCH ×2 (02:43→11:00)
[2019-02-19] MEDS: Ondansetron 4 MG/2 ML SDV IVPUSH PRN ×2 (03:06→08:41)
[2019-02-19 10:51] VITALS: BP 102/63
--- NOTE | 2019-02-19 13:59 | HP ---
HISTORY OF PRESENT ILLNESS: Mary Beth was admitted yesterday through the emergency room with generalized upper abdominal pain, which started on 02/18/2019 around 1400 hours. She said it would come and go. Pain level 9-10, cramping pressure, started on left upper abdominal quadrant, radiated down to the mid abdominal quadrant around to the back, twisting and pulling, associated with nausea, bloating, and increased gas. Pain is exacerbated by eating. She states she has had similar episodes to this, but this one seems to be the worst. She has been staying ahead of the abdominal bloating by taking MiraLAX every night, eating healthier, and eating cooked vegetables rather than raw vegetables. She was admitted to the hospital for partial small-bowel obstruction. CURRENT MEDICATIONS: 1. Vitamin A 8000 international units daily. 2. B12 1000 mcg IM every 3 weeks. 3. Vitamin D3 5000 international units daily. 4. Ferrous fumarate 325 mg daily. 5. Tylenol 500 mg daily. 6. Probiotic 2000 mg twice daily. 7. Calcium citrate 1 tablet twice a day. 8. B complex 100 mg daily. 9. Multivitamin 2 tablets b.i.d. 10.Vitamin B12 1000 mcg sublingual daily. 11.Ulpenbzucma-Ogbsqrt-Kvsvzgfjj 1 tablet daily. 12.Flexeril 10 mg q.6 hours p.r.n. muscle spasms. 13.MiraLAX 34 g b.i.d. 14.Senna S2 tablets at bedtime. ALLERGIES: DOXYCYCLINE AND SOMATROPIN. PAST MEDICAL HISTORY: 1. SP Brennon-en-Y gastric bypass surgery. 2. Unspecified surgical malabsorption. 3. B12 deficiency. 4. Low ferritin. 5. Vitamin D deficiency. 6. Reactive hypoglycemia after gastrointestinal weight loss surgery. 7. History of type 2 diabetes, resolved after bariatric surgery. 8. Iron deficiency anemia. 9. Copper deficiency. 10.Vitamin A deficiency. 11.Zinc deficiency. PAST SURGICAL HISTORY: 1. Laparoscopic [id number] anastomosis on 03/01/2016. 2. Breast reduction in 1998. 3. section on 09/25/2015. 4. LEEP procedure on 07/10/2012. 5. Laparoscopic cholecystectomy on 12/11/2013. 6. Small-bowel obstruction repair on 11/29/2014 and 03/01/2016. 7. Laparoscopic Brennon-en-Y gastric bypass surgery on 07/16/2007 and revision of gastric bypass surgery 03/01/2016. 8. Reduction of volvulus, intussusception on 11/29/2014. 9. Laparotomy 11/19/2018 for volvulus, internal hernia. 10.[place] teeth extraction. REVIEW OF SYSTEMS: GENERAL: Denies any fever, chills, night sweats, or fatigue. No weight loss. HEENT: Negative. NECK: Negative. HEART: No chest pain, shortness of breath, or fast or irregular heartbeat. LUNGS: No cough. ABDOMEN: Last bowel movement, had 2 yesterday morning, is passing flatus. : No UTI signs and symptoms. EXTREMITIES: No joint pain or swelling. NEUROLOGIC: Denies headache, dizziness, or loss of coordination. PSYCHIATRIC: Negative for any depression, anxiety, or insomnia. FAMILY HISTORY: Noncontributory. SOCIAL HISTORY: Single, has two children. Caffeine use, one cup of coffee. She does not drink alcohol or carbonation. DIET: Step 3 gastric bypass diet, 1480 g a day. EXERCISE: None. FLUIDS: Greater than 64 ounces and taking all recommended post status Brennon-en-Y gastric bypass surgery vitamins. OBJECTIVE: GENERAL: Mary Beth Castellanos is a 43-year-old female. She is alert and oriented. VITAL SIGNS: TPR 96.8, 63, 16. Blood pressure 98/53. HEENT: Negative. NECK: Supple. HEART: Regular rate and rhythm. LUNGS: Clear. ABDOMEN: This a.m. is soft, flat, and nontender. EXTREMITIES: Negative. NEUROLOGIC: Intact. PSYCHIATRIC: Mood and affect appropriate. ASSESSMENT: 1. Partial small-bowel obstruction. 2. Postsurgical malabsorption. 3. Laparoscopic Brennon-en-Y gastric bypass surgery 07/16/2007 and revision of gastric bypass surgery 03/01/2016. 4. Reactive hypoglycemia. 5. Vitamin B deficiency. 6. Vitamin A deficiency. 7. Vitamin D deficiency. 8. Status post diabetes, type 2, prior to gastric bypass surgery. PLAN: Step 2 gastric bypass diet, advance as tolerated. Continue to monitor abdominal pain. Continue same orders. We will evaluate p.r.n. or in a.m. Lauryn Cueto PA-C /[id number]
--- NOTE | 2019-02-19 14:34 | DISCH ---
ADMISSION DIAGNOSES: Partial small bowel obstruction, abdominal pain status post Brennon-en-Y gastric bypass surgery, status post revision of Brennon-en-Y gastric bypass surgery, unspecified surgical malabsorption, B12 deficiency, low ferritin, vitamin D deficiency, reactive hypoglycemia after gastrointestinal weight loss surgery, history of type 2 diabetes, iron-deficiency anemia, copper deficiency, vitamin A deficiency, and zinc deficiency. DISCHARGE DIAGNOSIS: Resolution of partial small bowel obstruction. HISTORY: Mary Beth was admitted on 02/18/2019 through the emergency room with generalized abdominal pain, on CT scan was negative. She was treated with IV fluids, IV pain medication via [employer], and n.p.o. Her pain resolved. She was started on a step-2 gastric bypass diet, then advanced to a step-3. She felt better. Her pain did not come back and she requested to be discharged to home. PHYSICAL EXAMINATION: GENERAL: Mary Beth is a 43-year-old female. VITAL SIGNS: TPR is 96, 52, 16, blood pressure 102/63. Exam deferred. The patient requested to be discharged to home. DISPOSITION: Discharged to home. CONDITION: Stable. MEDICATIONS: Resume previous home medication. FOLLOWUP APPOINTMENT: With Lauryn Cueto PA-C on 03/10/2019 at 9 a.m. DIET: Usual diet as tolerated, drink 8 to 10 glasses of water a day. ACTIVITY: As tolerated. DISCHARGE INSTRUCTIONS: Notify provider if any fever, increased pain, nausea, or vomiting.
[2019-02-19] MEDS ORDERED: Pantoprazole 40 MG Vial IV SCH (21:00)
== END 2019-02-19 14:18 | disposition home or self-care (01) | DRG 247 ==
LOC: JP.ED 16:56 → JP.MS 21:06
PROVIDERS: ADMIT Surgery; ATTEND Surgery
DX: K56.600 Partial intestinal obstruction, unspecified as to cause (principal); K91.2 Postsurgical malabsorption, not elsewhere classified; E16.1 Other hypoglycemia; Z86.39 Personal history of other endocrine, nutritional and metabolic disease; Z98.84 Bariatric surgery status; Z98.0 Intestinal bypass and anastomosis status; H54.7 Unspecified visual loss; G89.29 Other chronic pain; M19.90 Unspecified osteoarthritis, unspecified site; M54.2 Cervicalgia; E53.8 Deficiency of other specified B group vitamins; E55.9 Vitamin D deficiency, unspecified; D50.9 Iron deficiency anemia, unspecified; G43.909 Migraine, unspecified, not intractable, without status migrainosus; E61.0 Copper deficiency; E60 Dietary zinc deficiency; Z88.1 Allergy status to other antibiotic agents; Z88.8 Allergy status to other drugs, medicaments and biological substances; J30.9 Allergic rhinitis, unspecified
CPT/HCPCS: 36415; 74176; 80053; 83605; 83690; 84703; 85025; 94762; 96374; 96375; 99285-25; C9113; J1170; J2270; J2405; J2765; J3410; J7030; J7042; J7120

== ENCOUNTER 2019-05-03 08:36 | Day surgery (SDC) | payer BC, OTHER ==
[2019-05-03] MEDS ORDERED: Lactated Ringers 1,000 ML IV SCH (09:30)
[2019-05-03] MEDS ORDERED: Cyanocobalamin (Vitamin B12) 1,000 MCG/ML SDV SUBCUT ONE (09:30)
[2019-05-03] MEDS ORDERED: fentaNYL 100 MCG/2 ML SDV ONE (10:02)
[2019-05-03] MEDS ORDERED: Propofol 200 MG/20 ML SDV ONE (10:02)
[2019-05-03] MEDS ORDERED: Midazolam 1 MG/ML 2 ML SDV ONE (10:03)
[2019-05-03] MEDS ORDERED: Glycopyrrolate 0.2 MG/ML 2 ML SDV IVPUSH ONE (10:45)
[2019-05-03] MEDS ORDERED: MVI, Adult with Vitamin K 10 ML, Thiamine 200 MG, Chromium/Copper/Mang/Selen/Zn 1 ML in... IV ONE ×4 (10:45)
[2019-05-03] MEDS ORDERED: Pantoprazole 40 MG Vial IVPUSH ONE (11:30)
[2019-05-03 12:12] VITALS: BP 108/68; PULSE 64
[2019-05-04 17:08] LABS: H. PYLORI BREATH TEST Negative (Negative)
--- NOTE | 2019-05-08 11:59 | OR ---
DATE OF PROCEDURE: 05/03/2019 INDICATION: The patient is status post previous brennon-en-y gastric bypass, presented to the emergency room recently with some black stools. The patient presently has not been taking iron supplement and is having some loose bowel movements since the revision of the gastric bypass in February of 2016. A CT scan was obtained as part of the workup, which shows mild possible thickening of the transverse colon, although this would still also likely be related to underdistention of that area. The plan is to proceed with upper GI endoscopy with biopsies as indicated. Potential risks including bleeding and perforation were discussed, and the patient wishes to proceed. DETAILS OF PROCEDURE: The patient was taken to the operating room and placed in a left lateral decubitus position. IV sedation was administered, after which the upper GI endoscope was passed orally through the length of the esophagus into the gastric pouch and thereafter through the gastrojejunostomy roughly 20 cm into the Brennon limb. Findings included normal examination overall. There were no areas of inflammation, blood, or bleeding, and no areas of stricturing throughout the exam. The scope was then withdrawn back into the gastric pouch, where biopsies were obtained for CLOtest for H. pylori. No bleeding from the biopsy site was seen, and the procedure then concluded. It is possible the patient is bleeding from the bypassed stomach or duodenum. Given this, we will double check on the H. pylori status with H. pylori breath test, and we will begin the patient on Protonix 40 mg a day and will be given Protonix 40 mg in the recovery room. She will be following up with Lauryn Cueto in 7 to 10 days. If the patient continues to have some dark stools, a colonoscopy might be warranted given the CT findings as outlined above. Chester Easley MD /[id number]
== END 2019-05-03 12:54 | disposition home or self-care (01) ==
LOC: JP.SDS 08:36
PROVIDERS: ATTEND Surgery
DX: R19.5 Other fecal abnormalities (principal); K63.89 Other specified diseases of intestine; Z93.4 Other artificial openings of gastrointestinal tract status; Z98.84 Bariatric surgery status
CPT/HCPCS: 36415; 43239; 80053; 82607; 82728; 82746; 83013; 85027; 87081; C9113; J2250; J2704; J3010; J3411; J3420; J3490; J7120

== ENCOUNTER 2022-02-13 09:35 | Inpatient (IN) | payer BC, OTHER ==
[2022-02-13] MEDS ORDERED: Acetaminophen 650 MG Supp RECTAL PRN (10:11)
[2022-02-13] MEDS ORDERED: Ondansetron 4 MG/2 ML SDV IVPUSH PRN (10:12)
[2022-02-13] MEDS ORDERED: Dextrose 5%-Lactated Ringers 1,000 ML IV SCH (10:15)
[2022-02-13 10:59] LABS: CORONAVIRUS COVID-19 NAA NEGATIVE (NEGATIVE)
[2022-02-13] MEDS ORDERED: MVI, Adult with Vitamin K 10 ML, Magnesium Sulfate 2 GM, Folic Acid 1 MG, Thiamine 100 ... IV ONE ×5 (11:00)
[2022-02-13] MEDS: Pantoprazole 40 MG Vial IV SCH (11:15)
[2022-02-13] MEDS: Scopolamine 1.5 MG Transdermal Patch TOP SCH (11:16)
[2022-02-13] MEDS: Amylase/Lipase/Protease 12,000 Unit Cap.CR PO SCH ×2 (11:17→17:56)
[2022-02-13] MEDS: Acetaminophen 325 MG Tab PO PRN (11:38)
[2022-02-13] MEDS ORDERED: Albumin Human 25 GM in Premix Bag 1 BAG IV SCH ×2 (12:00→16:30)
[2022-02-13] MEDS ORDERED: Magnesium Sulfate/Water 2 GM/50 ML BAG IV SCH (16:00)
[2022-02-13] MEDS: Magnesium Sulfate/Water 2 GM in Premix Bag 1 BAG IV SCH (17:56)
[2022-02-13] MEDS: Albumin Human 25 GM in Premix Bag 1 BAG IV SCH (20:15)
[2022-02-13] MEDS: Multivitamins with Iron Tab.Chew PO SCH (21:06)
[2022-02-13] MEDS: Triamcinolone Acetonide 0.1% Oint 15 GM Tube TOP SCH (21:08)
[2022-02-14] MEDS: Magnesium Sulfate/Water 2 GM in Premix Bag 1 BAG IV SCH ×5 (00:24→22:44)
[2022-02-14] MEDS: Cyanocobalamin (Vitamin B12) 1,000 MCG Tab PO SCH (08:26)
[2022-02-14] MEDS: Vitamin A 10,000 Unit Cap PO SCH (08:26)
[2022-02-14] MEDS: Ferrous Fumarate/Vitamin C 200-125 MG Tab PO SCH (08:26)
[2022-02-14] MEDS: Multivitamins with Iron Tab.Chew PO SCH ×2 (08:26→21:21)
[2022-02-14] MEDS: Vitamin B Complex Tab PO SCH (08:26)
[2022-02-14] MEDS: COPPER 2 MG PO SCH (08:26)
[2022-02-14] MEDS: Cholecalciferol (Vitamin D3) 25 MCG Tab PO SCH (08:26)
[2022-02-14] MEDS: Zinc Sulfate 220 MG Cap PO SCH (08:26)
[2022-02-14] MEDS: Triamcinolone Acetonide 0.1% Oint 15 GM Tube TOP SCH ×2 (08:27→21:21)
[2022-02-14] MEDS: SCOPOLAMINE PATCH CHECK TOP SCH (08:27)
[2022-02-14] MEDS: Amylase/Lipase/Protease 12,000 Unit Cap.CR PO SCH ×3 (08:27→17:50)
[2022-02-14] MEDS ORDERED: Propofol 200 MG/20 ML SDV ONE ×2 (09:12→11:22)
[2022-02-14] MEDS ORDERED: Midazolam 1 MG/ML 2 ML SDV ONE ×2 (09:12→11:22)
[2022-02-14] MEDS ORDERED: fentaNYL 100 MCG/2 ML SDV ONE ×2 (09:12→11:22)
[2022-02-14] MEDS: Pantoprazole 40 MG Vial IV SCH (10:20)
[2022-02-14] MEDS ORDERED: Bupivacaine 0.5% 50 ML MDV ONE (10:21)
[2022-02-14] MEDS ORDERED: Lidocaine 1% with EPINEPHrine 1:100,000 50 ML MDV ONE (10:22)
[2022-02-14] MEDS ORDERED: ceFAZolin 2 GM in Premix Bag 1 BAG IV ONE (12:00)
[2022-02-14] MEDS ORDERED: ceFAZolin 1 GM Vial ONE (12:08)
[2022-02-14] MEDS: Albumin Human 25 GM in Premix Bag 1 BAG IV SCH ×2 (15:13→19:56)
[2022-02-14] MEDS: 1: AA 5%/Calcium/D15W/Lytes 1,000 ML with MVI, Adult with Vitamin K 10 ML, Zinc/Copper/M IV SCH ×3 (15:55)
[2022-02-14] MEDS: Fat Emulsion 100 ML IV SCH (15:57)
[2022-02-14] MEDS: Sodium Chloride 0.9% 500 ML IV SCH (16:04)
[2022-02-14] MEDS: Acetaminophen 325 MG Tab PO PRN ×2 (16:31→22:50)
[2022-02-15] MEDS: 1: AA 5%/Calcium/D15W/Lytes 1,000 ML with MVI, Adult with Vitamin K 10 ML, Zinc/Copper/M IV SCH ×3 (02:15)
[2022-02-15] MEDS: Magnesium Sulfate/Water 2 GM in Premix Bag 1 BAG IV SCH ×4 (04:46→23:59)
[2022-02-15] MEDS ORDERED: Central Total Parenteral Nutrition Bag SCH (07:45)
[2022-02-15] MEDS: Triamcinolone Acetonide 0.1% Oint 15 GM Tube TOP SCH ×2 (08:02→20:41)
[2022-02-15] MEDS: Amylase/Lipase/Protease 12,000 Unit Cap.CR PO SCH ×3 (08:04→18:28)
[2022-02-15] MEDS: Cholecalciferol (Vitamin D3) 25 MCG Tab PO SCH (08:04)
[2022-02-15] MEDS: Cyanocobalamin (Vitamin B12) 1,000 MCG Tab PO SCH (08:04)
[2022-02-15] MEDS: Ferrous Fumarate/Vitamin C 200-125 MG Tab PO SCH (08:04)
[2022-02-15] MEDS: Vitamin B Complex Tab PO SCH (08:04)
[2022-02-15] MEDS: Zinc Sulfate 220 MG Cap PO SCH (08:04)
[2022-02-15] MEDS: COPPER 2 MG PO SCH (08:05)
[2022-02-15] MEDS: Vitamin A 10,000 Unit Cap PO SCH (08:05)
[2022-02-15] MEDS: Multivitamins with Iron Tab.Chew PO SCH ×2 (08:05→20:41)
[2022-02-15] MEDS: SCOPOLAMINE PATCH CHECK TOP SCH (08:10)
[2022-02-15] MEDS: Acetaminophen 325 MG Tab PO PRN ×2 (09:12→20:41)
[2022-02-15] MEDS: Pantoprazole 40 MG Tab.CR PO SCH (11:19)
[2022-02-15] MEDS: [UNRECOGNIZED DRUG - OTHER] PO SCH (11:20)
[2022-02-15] MEDS: Potassium Phos in 0.9 % NaCl 15 MMOL in Premix Bag 1 BAG IV SCH ×6 (11:21→16:27)
[2022-02-15] MEDS: 1: Amino Acids 5%/Dextrose 15% 1,000 ML with MVI, Adult with Vitamin K 10 ML, Zinc/Copp IV SCH ×3 (13:58)
[2022-02-15] MEDS: Albumin Human 25 GM in Premix Bag 1 BAG IV SCH ×2 (16:27→20:20)
[2022-02-15] MEDS: Fat Emulsion 100 ML IV SCH (16:28)
[2022-02-16] MEDS: 1: Amino Acids 5%/Dextrose 15% 1,000 ML with MVI, Adult with Vitamin K 10 ML, Zinc/Copp IV SCH ×9 (01:07→23:40)
[2022-02-16] MEDS: Acetaminophen 325 MG Tab PO PRN (04:23)
[2022-02-16] MEDS: Magnesium Sulfate/Water 2 GM in Premix Bag 1 BAG IV SCH ×2 (05:11→10:29)
[2022-02-16] MEDS: Pantoprazole 40 MG Tab.CR PO SCH (07:10)
[2022-02-16] MEDS: Sodium Chloride 0.9% 500 ML IV SCH (07:12)
[2022-02-16] MEDS: Triamcinolone Acetonide 0.1% Oint 15 GM Tube TOP SCH ×2 (08:36→21:15)
[2022-02-16] MEDS: Vitamin B Complex Tab PO SCH (08:37)
[2022-02-16] MEDS: Amylase/Lipase/Protease 12,000 Unit Cap.CR PO SCH ×3 (08:37→17:34)
[2022-02-16] MEDS: Ferrous Fumarate/Vitamin C 200-125 MG Tab PO SCH (08:37)
[2022-02-16] MEDS: Cyanocobalamin (Vitamin B12) 1,000 MCG Tab PO SCH (08:37)
[2022-02-16] MEDS: Cholecalciferol (Vitamin D3) 25 MCG Tab PO SCH (08:37)
[2022-02-16] MEDS: Multivitamins with Iron Tab.Chew PO SCH ×2 (08:37→21:22)
[2022-02-16] MEDS: Vitamin A 10,000 Unit Cap PO SCH (08:37)
[2022-02-16] MEDS: Zinc Sulfate 220 MG Cap PO SCH (08:37)
[2022-02-16] MEDS: [UNRECOGNIZED DRUG - OTHER] PO SCH (08:38)
[2022-02-16] MEDS: COPPER 2 MG PO SCH (08:38)
[2022-02-16] MEDS: SCOPOLAMINE PATCH CHECK TOP SCH (08:38)
[2022-02-16] MEDS: Scopolamine 1.5 MG Transdermal Patch TOP SCH (10:26)
[2022-02-16] MEDS ORDERED: Furosemide 20 MG/2 ML VIAL IVPUSH ONE (10:30)
[2022-02-16] MEDS: Albumin Human 25 GM in Premix Bag 1 BAG IV SCH ×2 (15:34→19:35)
[2022-02-16] MEDS: Fat Emulsion 100 ML IV SCH (15:34)
[2022-02-17] MEDS: Acetaminophen 325 MG Tab PO PRN (01:28)
[2022-02-17] MEDS: Pantoprazole 40 MG Tab.CR PO SCH (07:52)
[2022-02-17] MEDS: SCOPOLAMINE PATCH CHECK TOP SCH (08:00)
[2022-02-17] MEDS: Triamcinolone Acetonide 0.1% Oint 15 GM Tube TOP SCH ×2 (08:00→20:21)
[2022-02-17] MEDS: Multivitamins with Iron Tab.Chew PO SCH ×2 (08:02→20:22)
[2022-02-17] MEDS: Vitamin A 10,000 Unit Cap PO SCH (08:02)
[2022-02-17] MEDS: Zinc Sulfate 220 MG Cap PO SCH (08:02)
[2022-02-17] MEDS: Ferrous Fumarate/Vitamin C 200-125 MG Tab PO SCH (08:02)
[2022-02-17] MEDS: Cholecalciferol (Vitamin D3) 25 MCG Tab PO SCH (08:02)
[2022-02-17] MEDS: Amylase/Lipase/Protease 12,000 Unit Cap.CR PO SCH ×3 (08:02→17:26)
[2022-02-17] MEDS: Vitamin B Complex Tab PO SCH (08:02)
[2022-02-17] MEDS: Cyanocobalamin (Vitamin B12) 1,000 MCG Tab PO SCH (08:02)
[2022-02-17] MEDS: [UNRECOGNIZED DRUG - OTHER] PO SCH (08:03)
[2022-02-17] MEDS: COPPER 2 MG PO SCH (08:03)
[2022-02-17] MEDS: 1: Amino Acids 5%/Dextrose 15% 1,000 ML with MVI, Adult with Vitamin K 10 ML, Zinc/Copp IV SCH ×9 (09:27→21:39)
[2022-02-17] MEDS ORDERED: Furosemide 20 MG/2 ML VIAL IVPUSH ONE (12:00)
[2022-02-17] MEDS: Fat Emulsion 100 ML IV SCH (15:36)
[2022-02-17] MEDS: Albumin Human 25 GM in Premix Bag 1 BAG IV SCH ×2 (15:37→20:18)
[2022-02-18] MEDS: Acetaminophen 325 MG Tab PO PRN ×3 (02:12→23:41)
[2022-02-18] MEDS: Pantoprazole 40 MG Tab.CR PO SCH (07:11)
[2022-02-18] MEDS ORDERED: Central Total Parenteral Nutrition Bag SCH (07:15)
[2022-02-18] MEDS: Multivitamins with Iron Tab.Chew PO SCH ×2 (08:53→20:40)
[2022-02-18] MEDS: SCOPOLAMINE PATCH CHECK TOP SCH (08:54)
[2022-02-18] MEDS: [UNRECOGNIZED DRUG - OTHER] PO SCH (08:54)
[2022-02-18] MEDS: COPPER 2 MG PO SCH (08:54)
[2022-02-18] MEDS: Amylase/Lipase/Protease 12,000 Unit Cap.CR PO SCH ×3 (08:54→17:16)
[2022-02-18] MEDS: Cholecalciferol (Vitamin D3) 25 MCG Tab PO SCH (08:55)
[2022-02-18] MEDS: Cyanocobalamin (Vitamin B12) 1,000 MCG Tab PO SCH (08:55)
[2022-02-18] MEDS: Vitamin B Complex Tab PO SCH (08:55)
[2022-02-18] MEDS: Vitamin A 10,000 Unit Cap PO SCH (08:55)
[2022-02-18] MEDS: Zinc Sulfate 220 MG Cap PO SCH (08:55)
[2022-02-18] MEDS: Ferrous Fumarate/Vitamin C 200-125 MG Tab PO SCH (08:55)
[2022-02-18] MEDS: 1: Amino Acids 5%/Dextrose 15% 1,000 ML with MVI, Adult with Vitamin K 10 ML, Zinc/Copp IV SCH ×3 (09:10)
[2022-02-18] MEDS: Triamcinolone Acetonide 0.1% Oint 15 GM Tube TOP SCH ×2 (09:45→20:41)
[2022-02-18] MEDS: Albumin Human 25 GM in Premix Bag 1 BAG IV SCH ×2 (14:34→19:54)
[2022-02-18] MEDS: Fat Emulsion 100 ML IV SCH (15:53)
[2022-02-18] MEDS ORDERED: COPP IV SCH ×3 (19:30)
[2022-02-18] MEDS ORDERED: ZINC IV SCH ×3 (19:30)
[2022-02-18] MEDS ORDERED: AMINO ACIDS IV SCH ×3 (19:30)
[2022-02-18] MEDS ORDERED: MVI IV SCH ×3 (19:30)
[2022-02-18] MEDS ORDERED: DEXTROSE 15% IV SCH ×3 (19:30)
[2022-02-18] MEDS ORDERED: VITAMIN K IV SCH ×3 (19:30)
[2022-02-19] MEDS ORDERED: Meropenem 500 MG SDV ONE (07:08)
[2022-02-19] MEDS ORDERED: Dexamethasone 4 MG/ML SDV ONE (08:16)
[2022-02-19] MEDS ORDERED: Ondansetron 4 MG/2 ML SDV ONE (08:16)
[2022-02-19] MEDS ORDERED: Succinylcholine 200 MG/10 ML MDV ONE (08:16)
[2022-02-19] MEDS ORDERED: Rocuronium 50 MG/5 ML Vial ONE (08:16)
[2022-02-19] MEDS ORDERED: Glycopyrrolate 0.2 MG/ML 5 ML MDV ONE (08:16)
[2022-02-19] MEDS ORDERED: Propofol 200 MG/20 ML SDV ONE (08:16)
[2022-02-19] MEDS ORDERED: Neostigmine Methylsulfate 1 MG/ML 5 ML Syringe ONE (08:16)
[2022-02-19] MEDS ORDERED: fentaNYL 250 MCG/5 ML SDV ONE ×2 (08:16→12:18)
[2022-02-19] MEDS: Acetaminophen 325 MG Tab PO PRN (09:04)
[2022-02-19] MEDS: Triamcinolone Acetonide 0.1% Oint 15 GM Tube TOP SCH (09:05)
[2022-02-19] MEDS: SCOPOLAMINE PATCH CHECK TOP SCH (09:05)
[2022-02-19] MEDS: Pantoprazole 40 MG Tab.CR PO SCH (09:08)
[2022-02-19] MEDS: Amylase/Lipase/Protease 12,000 Unit Cap.CR PO SCH ×2 (10:05→14:44)
[2022-02-19] MEDS: Vitamin A 10,000 Unit Cap PO SCH (10:05)
[2022-02-19] MEDS: COPPER 2 MG PO SCH (10:05)
[2022-02-19] MEDS: [UNRECOGNIZED DRUG - OTHER] PO SCH (10:05)
[2022-02-19] MEDS: Multivitamins with Iron Tab.Chew PO SCH (10:05)
[2022-02-19] MEDS: Cholecalciferol (Vitamin D3) 25 MCG Tab PO SCH (10:05)
[2022-02-19] MEDS: Vitamin B Complex Tab PO SCH (10:05)
[2022-02-19] MEDS: Cyanocobalamin (Vitamin B12) 1,000 MCG Tab PO SCH (10:05)
[2022-02-19] MEDS: Zinc Sulfate 220 MG Cap PO SCH (10:06)
[2022-02-19] MEDS: Ferrous Fumarate/Vitamin C 200-125 MG Tab PO SCH (10:06)
[2022-02-19] MEDS ORDERED: Ketamine 17 MG in Sodium Chloride 0.9% 19.83 ML IV SCH (11:00)
[2022-02-19] MEDS ORDERED: Ketamine 500 MG/5 ML MDV IV SCH ×3 (11:00→12:00)
[2022-02-19] MEDS ORDERED: cefOXitin 2 GM in Sodium Chloride 0.9% 50 ML IV ONE (11:00)
[2022-02-19] MEDS ORDERED: Ropivacaine 30 ML, dexAMETHasone 8 MG, EPINEPHrine 0.4 MG, Sodium Chloride 0.9% 47.6 ML NERVRT SCH ×4 (11:00)
[2022-02-19] MEDS ORDERED: Bupivacaine 0.5% 50 ML MDV ONE (11:25)
[2022-02-19] MEDS ORDERED: Lidocaine 1% with EPINEPHrine 1:100,000 50 ML MDV ONE (11:25)
[2022-02-19] MEDS: Scopolamine 1.5 MG Transdermal Patch TOP SCH (12:10)
[2022-02-19] MEDS ORDERED: Labetalol 20 MG/4 ML Syringe ONE (12:41)
[2022-02-19] MEDS ORDERED: diphenhydrAMINE 50 MG/ML SDV IVPUSH PRN (13:28)
[2022-02-19] MEDS ORDERED: diphenhydrAMINE 25 MG Cap PO PRN (13:28)
[2022-02-19] MEDS ORDERED: Naloxone 0.4 MG/ML SDV IVPUSH PRN (13:28)
[2022-02-19] MEDS ORDERED: Ondansetron 4 MG/2 ML SDV IVPUSH PRN (13:28)
[2022-02-19] MEDS: HYDROmorphone/Normal Saline 6 MG/30 ML PCA Vial IV PRN ×2 (13:36→20:38)
[2022-02-19] MEDS ORDERED: Naloxone 0.4 MG/ML SDV IV PRN (14:00)
[2022-02-19] MEDS ORDERED: 50% Dextrose in Water 50 ML Syringe IVPUSH PRN ×2 (14:12→15:00)
[2022-02-19] MEDS ORDERED: Glucagon,Human Recombinant 1 MG Vial IM PRN ×2 (14:12→15:00)
[2022-02-19] MEDS ORDERED: hydrOXYzine HCL 100 MG/2 ML SDV IM PRN (14:50)
[2022-02-19] MEDS ORDERED: Insulin Lispro 100 Unit/ML 3 ML KwikPen SUBCUT ONE (15:00)
[2022-02-19] MEDS ORDERED: Metoclopramide 10 MG/2 ML SDV IVPUSH PRN (15:00)
[2022-02-19] MEDS ORDERED: Acetaminophen 500 MG Tab PO PRN (15:00)
[2022-02-19] MEDS ORDERED: Labetalol 20 MG/4 ML Syringe IVPUSH PRN (15:00)
[2022-02-19] MEDS: Acetaminophen 500 MG Tab PO SCH ×2 (15:43→23:10)
[2022-02-19] MEDS: Dextrose 5%-Lactated Ringers 1,000 ML IV SCH (15:43)
[2022-02-19] MEDS ORDERED: MVI IV SCH ×3 (16:00)
[2022-02-19] MEDS ORDERED: AMINO ACIDS IV SCH ×3 (16:00)
[2022-02-19] MEDS ORDERED: DEXTROSE 15% IV SCH ×3 (16:00)
[2022-02-19] MEDS ORDERED: VITAMIN K IV SCH ×3 (16:00)
[2022-02-19] MEDS ORDERED: [UNRECOGNIZED DRUG - OTHER] IV SCH ×3 (16:00)
[2022-02-19] MEDS: diphenhydrAMINE 50 MG/ML SDV IVPUSH PRN (16:52)
[2022-02-19] MEDS ORDERED: Pantoprazole 40 MG Vial IVPUSH SCH (17:00)
[2022-02-19] MEDS: cefOXitin 2 GM in Sodium Chloride 0.9% 50 ML IV SCH ×2 (17:08→22:20)
[2022-02-19] MEDS: Insulin Lispro 100 Unit/ML 3 ML KwikPen SUBCUT SCH ×2 (17:32→22:17)
[2022-02-19] MEDS: Heparin Sodium 5,000 Units/ML Vial SUBCUT SCH (20:27)
[2022-02-20] MEDS: Dextrose 5%-Lactated Ringers 1,000 ML IV SCH ×2 (03:32→16:45)
[2022-02-20] MEDS: HYDROmorphone/Normal Saline 6 MG/30 ML PCA Vial IV PRN ×3 (04:16→21:01)
[2022-02-20] MEDS: Insulin Lispro 100 Unit/ML 3 ML KwikPen SUBCUT SCH ×4 (04:16→21:17)
[2022-02-20] MEDS: cefOXitin 2 GM in Sodium Chloride 0.9% 50 ML IV SCH ×4 (04:23→23:47)
[2022-02-20] MEDS ORDERED: Central Total Parenteral Nutrition Bag SCH (07:00)
[2022-02-20] MEDS: Heparin Sodium 5,000 Units/ML Vial SUBCUT SCH ×2 (08:10→19:27)
[2022-02-20] MEDS: Acetaminophen 500 MG Tab PO SCH ×3 (08:10→23:46)
[2022-02-20] MEDS: SCOPOLAMINE PATCH CHECK TOP SCH (08:11)
[2022-02-20] MEDS: diphenhydrAMINE 50 MG/ML SDV IVPUSH PRN ×2 (09:51→15:52)
[2022-02-20] MEDS: Pantoprazole 40 MG Vial IV SCH (15:52)
[2022-02-20] MEDS ORDERED: Pantoprazole 40 MG Delayed-Release Granules 1 Packet PO SCH (16:30)
[2022-02-20] MEDS ORDERED: VITAMIN K IV SCH ×3 (17:00)
[2022-02-20] MEDS ORDERED: [UNRECOGNIZED DRUG - OTHER] IV SCH ×3 (17:00)
[2022-02-20] MEDS ORDERED: AMINO ACIDS IV SCH ×3 (17:00)
[2022-02-20] MEDS ORDERED: DEXTROSE 15% IV SCH ×3 (17:00)
[2022-02-20] MEDS ORDERED: MVI IV SCH ×3 (17:00)
[2022-02-20] MEDS: Cyclobenzaprine 10 MG Tab PO PRN (23:43)
[2022-02-21] MEDS ORDERED: Iopamidol 612 MG/ML 50 ML SDV PO ONE (03:47)
[2022-02-21] MEDS: Dextrose 5%-Lactated Ringers 1,000 ML IV SCH ×2 (03:54→15:10)
[2022-02-21] MEDS: Insulin Lispro 100 Unit/ML 3 ML KwikPen SUBCUT SCH ×4 (04:09→21:18)
[2022-02-21] MEDS: HYDROmorphone/Normal Saline 6 MG/30 ML PCA Vial IV PRN ×2 (06:56→15:34)
[2022-02-21] MEDS ORDERED: Central Total Parenteral Nutrition Bag SCH (07:00)
[2022-02-21] MEDS ORDERED: Magnesium Sulfate/Water 2 GM/50 ML BAG IV SCH (07:00)
[2022-02-21] MEDS: Acetaminophen 500 MG Tab PO SCH ×2 (07:47→18:26)
[2022-02-21] MEDS: Heparin Sodium 5,000 Units/ML Vial SUBCUT SCH ×2 (07:48→19:55)
[2022-02-21] MEDS: Magnesium Sulfate/Water 2 GM in Premix Bag 1 BAG IV SCH ×3 (10:57→21:42)
[2022-02-21] MEDS: Bisacodyl 5 MG Tab PO SCH ×2 (10:58→21:43)
[2022-02-21] MEDS: Docusate Sodium 100 MG Cap PO SCH ×2 (10:58→21:43)
[2022-02-21] MEDS: SCOPOLAMINE PATCH CHECK TOP SCH (10:58)
[2022-02-21] MEDS: Cyclobenzaprine 10 MG Tab PO PRN (15:07)
[2022-02-21] MEDS: Pantoprazole 40 MG Vial IV SCH (15:39)
[2022-02-21] MEDS: diphenhydrAMINE 50 MG/ML SDV IVPUSH PRN (20:42)
[2022-02-21] MEDS: AA 5%/Calcium/D15W/Lytes 2,000 ML with MVI, Adult with Vitamin K 10 ML, Zinc/Copper/Man... IV SCH ×3 (21:44)
[2022-02-22] MEDS: Magnesium Sulfate/Water 2 GM in Premix Bag 1 BAG IV SCH ×4 (02:14→20:55)
[2022-02-22] MEDS: Acetaminophen 500 MG Tab PO SCH ×4 (02:14→23:53)
[2022-02-22] MEDS: HYDROmorphone/Normal Saline 6 MG/30 ML PCA Vial IV PRN ×3 (02:18→23:50)
[2022-02-22] MEDS: Insulin Lispro 100 Unit/ML 3 ML KwikPen SUBCUT SCH ×4 (04:23→21:41)
[2022-02-22] MEDS: Dextrose 5%-Lactated Ringers 1,000 ML IV SCH (05:23)
[2022-02-22] MEDS ORDERED: Dextrose 5%-Lactated Ringers 1,000 ML IV SCH (07:50)
[2022-02-22] MEDS ORDERED: Central Total Parenteral Nutrition Bag SCH (08:00)
[2022-02-22] MEDS: Heparin Sodium 5,000 Units/ML Vial SUBCUT SCH ×2 (08:28→20:55)
[2022-02-22] MEDS: Docusate Sodium 100 MG Cap PO SCH ×2 (08:30→20:55)
[2022-02-22] MEDS: Bisacodyl 5 MG Tab PO SCH ×2 (08:30→20:55)
[2022-02-22] MEDS: SCOPOLAMINE PATCH CHECK TOP SCH (10:47)
[2022-02-22] MEDS: diphenhydrAMINE 50 MG/ML SDV IVPUSH PRN (10:48)
[2022-02-22] MEDS: Cyclobenzaprine 10 MG Tab PO PRN ×2 (12:46→20:59)
[2022-02-22] MEDS: Scopolamine 1.5 MG Transdermal Patch TOP SCH (12:53)
[2022-02-22] MEDS: Pantoprazole 40 MG Delayed-Release Granules 1 Packet PO SCH (15:57)
[2022-02-22] MEDS: AA 5%/Calcium/D15W/Lytes 2,000 ML with MVI, Adult with Vitamin K 10 ML, Zinc/Copper/Man... IV SCH ×3 (20:53)
[2022-02-23] MEDS: diphenhydrAMINE 50 MG/ML SDV IVPUSH PRN (00:41)
[2022-02-23] MEDS: Magnesium Sulfate/Water 2 GM in Premix Bag 1 BAG IV SCH (02:51)
[2022-02-23] MEDS: Insulin Lispro 100 Unit/ML 3 ML KwikPen SUBCUT SCH ×4 (04:21→22:48)
[2022-02-23] MEDS: Acetaminophen 500 MG Tab PO SCH ×3 (09:03→23:07)
[2022-02-23] MEDS: Bisacodyl 5 MG Tab PO SCH ×2 (09:03→20:36)
[2022-02-23] MEDS: Docusate Sodium 100 MG Cap PO SCH ×2 (09:03→20:36)
[2022-02-23] MEDS: Heparin Sodium 5,000 Units/ML Vial SUBCUT SCH ×2 (09:04→20:36)
[2022-02-23] MEDS: oxyCODONE 5 MG Tab PO PRN ×3 (09:10→19:21)
[2022-02-23] MEDS: Magnesium Hydroxide 400 MG/5 ML Susp 30 ML Cup PO SCH ×2 (09:10→20:33)
[2022-02-23] MEDS: SCOPOLAMINE PATCH CHECK TOP SCH (09:11)
[2022-02-23] MEDS: Cyclobenzaprine 10 MG Tab PO PRN ×2 (13:21→20:35)
[2022-02-23] MEDS ORDERED: Bisacodyl 10 MG Supp RECTAL PRN (15:00)
[2022-02-23] MEDS: Pantoprazole 40 MG Delayed-Release Granules 1 Packet PO SCH (15:35)
[2022-02-23] MEDS: AA 5%/Calcium/D15W/Lytes 2,000 ML with MVI, Adult with Vitamin K 10 ML, Zinc/Copper/Man... IV SCH ×3 (23:06)
[2022-02-24] MEDS: oxyCODONE 5 MG Tab PO PRN ×3 (00:57→11:36)
[2022-02-24] MEDS: Insulin Lispro 100 Unit/ML 3 ML KwikPen SUBCUT SCH ×2 (04:58→10:38)
[2022-02-24] MEDS: Cyclobenzaprine 10 MG Tab PO PRN (05:27)
[2022-02-24 07:18] VITALS: BP 104/69
[2022-02-24] MEDS: Docusate Sodium 100 MG Cap PO SCH (08:51)
[2022-02-24] MEDS: Heparin Sodium 5,000 Units/ML Vial SUBCUT SCH (08:51)
[2022-02-24] MEDS: Acetaminophen 500 MG Tab PO SCH (08:51)
[2022-02-24] MEDS: Scopolamine 1.5 MG Transdermal Patch TOP SCH (08:52)
[2022-02-24] MEDS: Bisacodyl 5 MG Tab PO SCH (08:53)
[2022-02-24] MEDS: SCOPOLAMINE PATCH CHECK TOP SCH (09:26)
[2022-02-24] MEDS ORDERED: Magnesium Hydroxide 400 MG/5 ML Susp 30 ML Cup PO ONE (10:00)
[2022-02-24 12:32] VITALS: PULSE 85
== END 2022-02-24 15:24 | disposition home or self-care (01) | DRG 220 ==
LOC: JP.MS 09:35
PROVIDERS: ADMIT Surgery; ATTEND Surgery
PROC: 02HV33Z Insertion of Infusion Device into Superior Vena Cava, Percutaneous Approach (ICD-10-PCS; 2022-02-14)
PROC: 0BQT0ZZ Repair Diaphragm, Open Approach (ICD-10-PCS; principal; 2022-02-19)
PROC: 0FB20ZX Excision of Left Lobe Liver, Open Approach, Diagnostic (ICD-10-PCS; 2022-02-19)
PROC: 0DB80ZZ Excision of Small Intestine, Open Approach (ICD-10-PCS; 2022-02-19)
PROC: 0WQF0ZZ Repair Abdominal Wall, Open Approach (ICD-10-PCS; 2022-02-19)
PROC: 3E0M05Z Introduction of Adhesion Barrier into Peritoneal Cavity, Open Approach (ICD-10-PCS; 2022-02-19)
PROC: 0DBA0ZZ Excision of Jejunum, Open Approach (ICD-10-PCS; 2022-02-19)
PROC: 0DB40ZZ Excision of Esophagogastric Junction, Open Approach (ICD-10-PCS; 2022-02-19)
DX: K95.89 Other complications of other bariatric procedure (principal); E43 Unspecified severe protein-calorie malnutrition; K43.0 Incisional hernia with obstruction, without gangrene; K42.0 Umbilical hernia with obstruction, without gangrene; K44.9 Diaphragmatic hernia without obstruction or gangrene; E88.09 Other disorders of plasma-protein metabolism, not elsewhere classified; D50.8 Other iron deficiency anemias; K76.0 Fatty (change of) liver, not elsewhere classified; Z20.822 Contact with and (suspected) exposure to COVID-19; K91.2 Postsurgical malabsorption, not elsewhere classified; E55.9 Vitamin D deficiency, unspecified; E50.9 Vitamin A deficiency, unspecified; E53.9 Vitamin B deficiency, unspecified; E60 Dietary zinc deficiency; Z68.1 Body mass index [BMI] 19.9 or less, adult
CPT/HCPCS: 0241U; 36415; 36430; 74240; 74240-26; 80053; 82728; 82947; 83735; 83880; 84100; 85025; 85027; 86850; 86900; 86901; 86920; 86922; 88302; 88305; 88307; 88313; 97110-GP; 97162-GP; 97530-GP; 97535-GP; A9270-GY; C1776; C9113; J0171; J0330; J0690; J0694; J1100; J1170; J1200; J1642; J1644; J1815; J1940; J2020; J2185; J2250; J2405; J2704; J2710; J2795; J3010; J3410; J3411; J3475; J3490; J7040; J7120; J7121; P9016; P9047; Q9967

== ENCOUNTER 2022-03-21 09:26 | Day surgery (SDC) | payer BC, OTHER ==
[2022-03-21] MEDS ORDERED: Lactated Ringers 1,000 ML IV ONE (09:45)
[2022-03-21] MEDS ORDERED: Cyanocobalamin (Vitamin B12) 1,000 MCG/ML SDV SUBCUT ONE (10:30)
[2022-03-21] MEDS ORDERED: Midazolam 1 MG/ML 2 ML SDV ONE (10:59)
[2022-03-21] MEDS ORDERED: Propofol 200 MG/20 ML SDV ONE (10:59)
[2022-03-21] MEDS ORDERED: fentaNYL 100 MCG/2 ML SDV ONE (10:59)
[2022-03-21] MEDS ORDERED: MVI, Adult with Vitamin K 10 ML, Thiamine 200 MG, Chromium/Copper/Mang/Selen/Zn 1 ML in... IV ONE ×4 (11:00)
[2022-03-21] MEDS ORDERED: Glycopyrrolate 0.2 MG/ML 2 ML SDV IVPUSH ONE (11:00)
[2022-03-21] MEDS ORDERED: Dexamethasone 4 MG/ML SDV ONE (11:17)
[2022-03-21 13:08] VITALS: BP 118/69; PULSE 74
== END 2022-03-21 13:29 | disposition home or self-care (01) ==
LOC: JP.SDS 09:26
PROVIDERS: ATTEND Surgery
DX: K91.89 Other postprocedural complications and disorders of digestive system (principal); Z98.84 Bariatric surgery status; Z01.812 Encounter for preprocedural laboratory examination; Z20.822 Contact with and (suspected) exposure to COVID-19
CPT/HCPCS: C1726; J1100; J2250; J2704; J3010; J3411; J3420; J3490; J7120; U0002

== ENCOUNTER 2022-04-25 07:49 | Day surgery (SDC) | payer BC, OTHER ==
[~2022-04-25 07:49] MED LIST: MVI, Adult with Vitamin K 10 ML, Thiamine 200 MG, Chromium/Copper/Mang/Selen/Zn 1 ML in... IV ONE; Midazolam 1 MG/ML 2 ML SDV ONE; Propofol 200 MG/20 ML SDV ONE; fentaNYL 100 MCG/2 ML SDV ONE
[2022-04-25] MEDS ORDERED: Lactated Ringers 1,000 ML IV SCH (08:30)
[2022-04-25] MEDS ORDERED: Cyanocobalamin (Vitamin B12) 1,000 MCG/ML SDV IM ONE (08:45)
[2022-04-25] MEDS ORDERED: Glycopyrrolate 0.2 MG/ML 2 ML SDV IVPUSH ONE (09:15)
[2022-04-25] MEDS ORDERED: MVI, Adult with Vitamin K 10 ML, Thiamine 200 MG, Chromium/Copper/Mang/Selen/Zn 1 ML in... IV ONE ×4 (09:30)
[2022-04-25] MEDS ORDERED: Ondansetron 4 MG/2 ML SDV ONE (10:32)
[2022-04-25] MEDS ORDERED: Dexamethasone 4 MG/ML SDV ONE (10:32)
[2022-04-25 12:08] VITALS: BP 125/83; PULSE 93
== END 2022-04-25 12:26 | disposition home or self-care (01) ==
LOC: JP.SDS 07:49
PROVIDERS: ATTEND Surgery
DX: K91.89 Other postprocedural complications and disorders of digestive system (principal); Z98.84 Bariatric surgery status; Z01.812 Encounter for preprocedural laboratory examination; Z20.822 Contact with and (suspected) exposure to COVID-19
CPT/HCPCS: 43249; 87635; C1726; J1100; J2250; J2405; J2704; J3010; J3411; J3420; J7120; U0002

== ENCOUNTER 2022-05-10 08:10 | Day surgery (SDC) | payer BC ==
[2022-05-10] MEDS ORDERED: Lactated Ringers 1,000 ML IV ONE (08:45)
[2022-05-10] MEDS ORDERED: Cyanocobalamin (Vitamin B12) 1,000 MCG/ML SDV IM ONE (09:00)
[2022-05-10] MEDS ORDERED: MVI, Adult with Vitamin K 10 ML, Thiamine 200 MG, Zinc/Copper/Manganese/Selenium 1 ML i... IV ONE ×4 (09:45)
[2022-05-10] MEDS ORDERED: Propofol 200 MG/20 ML SDV ONE (10:06)
[2022-05-10] MEDS ORDERED: fentaNYL 100 MCG/2 ML SDV ONE (10:06)
[2022-05-10] MEDS ORDERED: Midazolam 1 MG/ML 2 ML SDV ONE (10:07)
[2022-05-10 11:14] LABS: ESTIMATED GFR 118 mL/min (>60)
[2022-05-10] MEDS ORDERED: Ondansetron 4 MG/2 ML SDV ONE (12:45)
[2022-05-10] MEDS ORDERED: Dexamethasone 4 MG/ML SDV ONE (12:48)
[2022-05-10 13:56] VITALS: BP 109/67; PULSE 88
== END 2022-05-10 14:12 | disposition home or self-care (01) ==
LOC: JP.SDS 08:10
PROVIDERS: ATTEND Surgery
DX: K91.89 Other postprocedural complications and disorders of digestive system (principal); K22.2 Esophageal obstruction; E11.9 Type 2 diabetes mellitus without complications; Z98.84 Bariatric surgery status
CPT/HCPCS: 36415; 43249; 76000; 80053; 82728; 83735; 84100; 85027; C1726; J1100; J2250; J2405; J2704; J3010; J3411; J3420; J7120

== ENCOUNTER → 2022-06-07 | Day surgery (SDC) | payer BC ==
[~2022-06-07] MED LIST changes: +Cyanocobalamin (Vitamin B12) 1,000 MCG/ML SDV IM ONE; +Glycopyrrolate 0.2 MG/ML 2 ML SDV IVPUSH ONE; +Lactated Ringers 1,000 ML IV SCH; -MVI, Adult with Vitamin K 10 ML, Thiamine 200 MG, Chromium/Copper/Mang/Selen/Zn 1 ML in... IV ONE; +MVI, Adult with Vitamin K 10 ML, Thiamine 200 MG, Zinc/Copper/Manganese/Selenium 1 ML i... IV ONE
[2022-06-07 10:56] VITALS: BP 121/84; PULSE 90
== END ==
LOC: JP.SDS 07:23
PROVIDERS: ATTEND Surgery
DX: K91.89 Other postprocedural complications and disorders of digestive system (principal); R13.10 Dysphagia, unspecified
CPT/HCPCS: 43249; C1726; J2250; J2704; J3010; J3490; J7120

== ENCOUNTER 2022-07-29 07:30 | Day surgery (SDC) | payer BC ==
[~2022-07-29 07:30] MED LIST changes: -Cyanocobalamin (Vitamin B12) 1,000 MCG/ML SDV IM ONE; -Glycopyrrolate 0.2 MG/ML 2 ML SDV IVPUSH ONE; -Lactated Ringers 1,000 ML IV SCH; -MVI, Adult with Vitamin K 10 ML, Thiamine 200 MG, Zinc/Copper/Manganese/Selenium 1 ML i... IV ONE
[2022-07-29] MEDS ORDERED: Ondansetron 4 MG/2 ML SDV ONE (07:53)
[2022-07-29] MEDS ORDERED: Lactated Ringers 1,000 ML IV ONE (08:00)
[2022-07-29] MEDS ORDERED: Glycopyrrolate 0.2 MG/ML 2 ML SDV IVPUSH ONE (09:00)
[2022-07-29] MEDS ORDERED: Cyanocobalamin (Vitamin B12) 1,000 MCG/ML SDV IM ONE (09:00)
[2022-07-29] MEDS ORDERED: MVI, Adult with Vitamin K 10 ML, Thiamine 200 MG, Zinc/Copper/Manganese/Selenium 1 ML i... IV ONE ×4 (09:00)
[2022-07-29] MEDS ORDERED: Dexamethasone 4 MG/ML SDV ONE (09:33)
[2022-07-29 10:50] VITALS: BP 134/87; PULSE 71
== END 2022-07-29 11:01 | disposition home or self-care (01) ==
LOC: JP.SDS 07:30
PROVIDERS: ATTEND Surgery
DX: K22.2 Esophageal obstruction (principal); E11.9 Type 2 diabetes mellitus without complications; Z79.899 Other long term (current) drug therapy; Z88.8 Allergy status to other drugs, medicaments and biological substances; Z91.018 Allergy to other foods
CPT/HCPCS: 43245; C1726; J1100; J2250; J2405; J2704; J3010; J3411; J3420; J3490; J7120

== ENCOUNTER 2022-12-05 08:18 | Day surgery (SDC) | payer BC ==
[~2022-12-05 08:18] MED LIST changes: +Glycopyrrolate 0.2 MG/ML 2 ML SDV IVPUSH ONE; -Midazolam 1 MG/ML 2 ML SDV ONE; -Propofol 200 MG/20 ML SDV ONE; -fentaNYL 100 MCG/2 ML SDV ONE
[2022-12-05] MEDS ORDERED: Lactated Ringers 1,000 ML IV SCH (08:45)
[2022-12-05] MEDS ORDERED: Cyanocobalamin (Vitamin B12) 1,000 MCG/ML SDV IM ONE (08:45)
[2022-12-05] MEDS ORDERED: Glycopyrrolate 0.2 MG/ML 2 ML SDV IVPUSH ONE (09:00)
[2022-12-05] MEDS ORDERED: MVI, Adult with Vitamin K 10 ML, Thiamine 200 MG, Zinc/Copper/Manganese/Selenium 1 ML i... IV ONE ×4 (09:45)
[2022-12-05] MEDS ORDERED: Midazolam 1 MG/ML 2 ML SDV ONE (09:48)
[2022-12-05] MEDS ORDERED: Propofol 200 MG/20 ML SDV ONE (09:48)
[2022-12-05] MEDS ORDERED: fentaNYL 50 MCG/ML SDV ONE (09:49)
[2022-12-05] MEDS ORDERED: Dexamethasone 4 MG/ML SDV ONE (09:55)
[2022-12-05] MEDS ORDERED: Ondansetron 4 MG/2 ML SDV ONE (09:55)
[2022-12-05] MEDS ORDERED: Pantoprazole 40 MG Vial IVPUSH ONE (12:22)
[2022-12-05 13:17] VITALS: BP 140/80; PULSE 69
== END 2022-12-05 13:21 | disposition home or self-care (01) ==
LOC: JP.SDS 08:18
PROVIDERS: ATTEND Surgery
DX: K94.23 Gastrostomy malfunction (principal); R13.10 Dysphagia, unspecified; K21.9 Gastro-esophageal reflux disease without esophagitis; Z79.899 Other long term (current) drug therapy; Z88.8 Allergy status to other drugs, medicaments and biological substances
CPT/HCPCS: 43245; C1726; C9113; J1100; J2250; J2405; J2704; J3010; J3411; J3420; J3490; J7120

== ENCOUNTER 2024-01-09 07:24 | Day surgery (SDC) | payer BC ==
[2024-01-09] MEDS ORDERED: Midazolam 1 MG/ML 2 ML SDV ONE (07:48)
[2024-01-09] MEDS ORDERED: Propofol 200 MG/20 ML SDV ONE (07:48)
[2024-01-09] MEDS ORDERED: fentaNYL 50 MCG/ML SDV ONE (07:48)
[2024-01-09] MEDS ORDERED: Sodium Chloride 0.9% 1,000 ML IV SCH (08:15)
[2024-01-09] MEDS: Lactated Ringers 1,000 ML IV SCH (08:16)
[2024-01-09] MEDS: Cyanocobalamin (Vitamin B12) 1,000 MCG/ML SDV IM ONE (08:17)
[2024-01-09] MEDS ORDERED: MVI, Adult with Vitamin K 10 ML, Thiamine 200 MG, Chromium/Copper/Mang/Selen/Zn 1 ML in... IV ONE (08:45)
[2024-01-09 09:53] VITALS: BP 118/85; PULSE 78
== END 2024-01-09 10:00 | disposition home or self-care (01) ==
LOC: JP.SDS 07:24
PROVIDERS: ATTEND Surgery
DX: R13.10 Dysphagia, unspecified (principal); Z79.899 Other long term (current) drug therapy
CPT/HCPCS: 43249; C1726; J2250; J2704; J3010; J3420; J7120

== ENCOUNTER 2025-01-10 07:56 | Day surgery (SDC) | payer BC ==
[2025-01-10] MEDS: Lactated Ringers 1,000 ML IV ONE (08:25)
[2025-01-10] MEDS: Cyanocobalamin (Vitamin B12) 1,000 MCG/ML SDV IM ONE (08:34)
[2025-01-10] MEDS: MVI, Adult with Vitamin K 10 ML, Thiamine 200 MG, Chromium/Copper/Mang/Selen/Zn 1 ML in... IV ONE (08:48)
[2025-01-10] MEDS ORDERED: Propofol 200 MG/20 ML SDV ONE (09:00)
[2025-01-10] MEDS ORDERED: Midazolam 1 MG/ML 2 ML SDV ONE (09:00)
[2025-01-10] MEDS ORDERED: fentaNYL 100 MCG/2 ML SDV ONE (09:00)
[2025-01-10] MEDS ORDERED: Ondansetron 4 MG/2 ML SDV ONE (09:00)
[2025-01-10 11:20] VITALS: BP 108/63; PULSE 55
== END 2025-01-10 11:50 | disposition home or self-care (01) ==
LOC: JP.SDS 07:56
PROVIDERS: ATTEND Surgery
DX: R13.10 Dysphagia, unspecified (principal); K20.90 Esophagitis, unspecified without bleeding; E11.9 Type 2 diabetes mellitus without complications; Z88.2 Allergy status to sulfonamides
CPT/HCPCS: 00731; 43239; J2250; J2405; J2704; J3010; J7120

== ENCOUNTER 2025-02-08 07:03 | Day surgery (SDC) | payer BC ==
[2025-02-08] MEDS ORDERED: fentaNYL 100 MCG/2 ML SDV ONE (07:33)
[2025-02-08] MEDS ORDERED: Propofol 200 MG/20 ML SDV ONE (07:33)
[2025-02-08] MEDS ORDERED: Midazolam 1 MG/ML 2 ML SDV ONE (07:34)
[2025-02-08] MEDS: Lactated Ringers 1,000 ML IV SCH (07:45)
[2025-02-08 10:10] VITALS: BP 126/72; PULSE 53
== END 2025-02-08 10:15 | disposition home or self-care (01) ==
LOC: JP.SDS 07:03
PROVIDERS: ATTEND Surgery
DX: R13.10 Dysphagia, unspecified (principal); K21.9 Gastro-esophageal reflux disease without esophagitis
CPT/HCPCS: 00731; 43245; C1726; J2250; J2704; J3010; J7120

== ENCOUNTER 2025-03-24 06:36 | Observation (INO) | payer BC ==
[2025-03-24 07:06] LABS: HEMATOCRIT 41.2 % (34.3-46.0); HEMOGLOBIN 13.5 g/dL (11.2-15.5); MEAN CORPUSCULAR HGB CONC 32.8 g/dL (31.6-35.5); MEAN CORPUSCULAR VOLUME 91.6 fL (81.4-99.0); RED BLOOD CELL COUNT 4.5 M/uL (3.77-5.24); WHITE BLOOD CELL COUNT,WBC 7.4 K/uL (3.2-11.0)
[2025-03-24] MEDS ORDERED: Ondansetron 4 MG/2 ML SDV ONE (07:09)
[2025-03-24] MEDS ORDERED: Neostigmine Methylsulfate 10 MG/10 ML MDV ONE (07:09)
[2025-03-24] MEDS ORDERED: Rocuronium 50 MG/5 ML Vial ONE (07:09)
[2025-03-24] MEDS ORDERED: Succinylcholine 200 MG/10 ML MDV ONE (07:09)
[2025-03-24] MEDS ORDERED: Dexamethasone 4 MG/ML SDV ONE (07:09)
[2025-03-24] MEDS ORDERED: Glycopyrrolate 0.2 MG/ML 5 ML MDV ONE (07:09)
[2025-03-24] MEDS ORDERED: Propofol 200 MG/20 ML SDV ONE (07:09)
[2025-03-24] MEDS ORDERED: fentaNYL 250 MCG/5 ML SDV ONE ×2 (07:11→08:27)
[2025-03-24] MEDS: Lactated Ringers 1,000 ML IV SCH (07:17)
[2025-03-24] MEDS: Scopalamine 1mg/3day Transdermal Patch TOP SCH (07:23)
[2025-03-24 07:28] LABS: A/G RATIO 0.9 (1.2-2.2); ALANINE AMINOTRANSFERASE,ALT 63 U/L (12-78); ALBUMIN 3.7 g/dL (3.4-5.0); ALKALINE PHOSPHATASE 102 U/L (46-116); ANION GAP 6.1 mmol/L (5.0-14.0); ASPARTATE AMNIOTRANSFERASE,AST 42 U/L (15-37); BILIRUBIN TOTAL 0.5 mg/dL (0.2-1.0); BLOOD UREA NITROGEN,BUN 16 mg/dL (7-18); CALCIUM 9.3 mg/dL (8.5-10.1); CARBON DIOXIDE,CO2 31 mmol/L (21-32); CHLORIDE,CL 105 mmol/L (100-108); CREATININE 0.7 mg/dL (0.6-1.0); EST CRCL DRUG DOSING (CG) 92.01 mL/min; ESTIMATED GFR 107 mL/min (>60); GLUCOSE RANDOM 126 mg/dL (74-106); POTASSIUM,K 4.3 mmol/L (3.6-5.2); PROTEIN TOTAL,TP 7.7 g/dL (6.4-8.2); SODIUM,NA 142 mmol/L (140-148)
[2025-03-24] MEDS: metroNIDAZOLE/Normal Saline 500 MG in Premix Bag 1 BAG IV ONE (07:33)
[2025-03-24] MEDS: ceFAZolin 2 GM in Premix Bag 1 BAG IV ONE (08:00)
[2025-03-24] MEDS: Bupivacaine 0.5%/EPINEPHrine 1:200,000 50 ML MDV ONE (08:40)
[2025-03-24] MEDS ORDERED: Lactated Ringers 1,000 ML ONE (09:30)
[2025-03-24] MEDS ORDERED: fentaNYL 100 MCG/2 ML SDV ONE (10:24)
[2025-03-24] MEDS ORDERED: Labetalol 20 MG/4 ML Syringe ONE (10:28)
[2025-03-24] MEDS: Ropivacaine 38 ML, dexAMETHasone 8 MG, EPINEPHrine 0.4 MG, Sodium Chloride 0.9% 39.6 ML NERVRT SCH (10:58)
[2025-03-24] MEDS ORDERED: Ketorolac 30 MG/ML SDV ONE (10:59)
[2025-03-24] MEDS ORDERED: Benzocaine/Cetylpyridinium/Menthol Lozenge MUCMEM PRN (12:46)
[2025-03-24] MEDS ORDERED: diphenhydrAMINE 50 MG/ML SDV IVPUSH PRN (12:46)
[2025-03-24] MEDS ORDERED: Acetaminophen/HYDROcodone 325-10 MG Tab PO PRN (12:46)
[2025-03-24] MEDS ORDERED: Acetaminophen 325 MG Tab PO PRN (12:46)
[2025-03-24] MEDS: Acetaminophen/HYDROcodone 325-5 MG Tab PO PRN ×2 (13:42→17:49)
[2025-03-24] MEDS: SCOPOLAMINE PATCH CHECK TOP SCH (16:34)
[2025-03-24] MEDS ORDERED: Metoclopramide 10 MG/2 ML SDV IV PRN (16:42)
[2025-03-24] MEDS: Ondansetron 4 MG/2 ML SDV IVPUSH PRN (16:50)
[2025-03-24] MEDS: Hypromellose 0.3% Ophth Soln 15 ML Bottle EYEBOTH PRN (18:20)
[2025-03-25] MEDS: fentaNYL 50 MCG/ML SDV IVPUSH PRN (04:52)
[2025-03-26] MEDS: Bisacodyl 5 MG Tab PO PRN (09:15)
[2025-03-26] MEDS: Docusate Sodium 100 MG Cap PO PRN (09:15)
[2025-03-26 11:24] VITALS: BP 131/70; PULSE 68
[2025-03-26] MEDS: Sodium Chloride 0.9% 100 ML IV SCH (13:20)
[2025-03-26] MEDS: Iopamidol 755 Mg/ML 100 ML Bottle IV SCH (13:20)
[2025-03-26] MEDS: Sodium Chloride 0.9% 10 ML Syringe FLUSH ONE (13:20)
[2025-03-27] MEDS ORDERED: Scopalamine 1mg/3day Transdermal Patch TRDERM SCH (09:00)
== END 2025-03-26 15:45 | disposition home or self-care (01) ==
LOC: JP.SDS 06:36 → JP.MS 12:46
PROVIDERS: ADMIT Surgery; ATTEND Surgery
DX: K43.0 Incisional hernia with obstruction, without gangrene (principal); K43.6 Other and unspecified ventral hernia with obstruction, without gangrene; E11.9 Type 2 diabetes mellitus without complications; E78.5 Hyperlipidemia, unspecified; Z79.899 Other long term (current) drug therapy
CPT/HCPCS: 36415; 49591; 49618; 71275; 80053; 85027; 96374; 96375; 96376; A9270; C1713; C1781; G0378; J0171; J0330; J0690; J1100; J1596; J1836; J1885; J1920; J2405; J2704; J2710; J2795; J3010; J3490; J7120; Q9967; 00790-QZ